=== PATIENT | female | born 1945 | race Caucasian/White ===

== ENCOUNTER 2018-12-18 17:16 | Inpatient (IN) | payer MEDICARE ==
[~2018-12-18] VITALS: Ht 170.2 cm; Wt 75.0 kg
[~2018-12-18 17:16] MED LIST: AMLO2.5T2 PO; ASPI-1265 PO; DEXL60CA3 PO; DILT-91 PO; DIVA-76 PO; FENO160T PO; GABA-534 PO; HYDR-3972 PO; HYDR50TA65 PO; LEVO500T2 PO; LISI-642 PO; METR-159 PO; ONDA4TAB12 PO; PARO40TA PO; PARO40TA4 PO; PRAV80TA3 PO; SYN0.088T PO; TRIA1TAB3 PO; ZOLP5TAB8 PO
[2018-12-18 17:50] LABS: CLARITY,URINE CLEAR (Clear); COLOR,URINE YELLOW (Yellow); GLUCOSE, URINE NEGATIVE (Neg); KETONES,URINE >=80 mg/dl (Neg); LEUKOCYTE ESTERASE ,URINE NEGATIVE (Neg); NITRITES, URINE NEGATIVE (Neg); OCCULT BLOOD,URINE NEGATIVE (Neg); PH,URINE 6.5 (4.8-8.0); PROTEIN,URINE 30 mg/dl (Neg); UROBILINOGEN,URINE 0.2 E.U/dL (0.2-1.0)
[2018-12-18 18:02] LABS: UA COLLECTION TYPE STRAIGHT CATH
[2018-12-18 18:24] LABS: ALANINE AMINOTRANSFERASE 22 U/L (12-78); ALBUMIN/GLOBULIN RATIO 0.7 (1.1-1.5); ALKALINE PHOSPHATASE 92 IU/L (46-116); ANION GAP 13 (8-16); ASPARTATE AMINO TRANSFERASE 22 U/L (10-37); BILIRUBIN,TOTAL 0.3 MG/DL (0.1-1.0); BLOOD UREA NITROGEN 15 MG/DL (7-18); CHLORIDE 102 MMOL/L (99-107); CREATININE 0.88 MG/DL (0.40-0.90); GLUCOSE 115 MG/DL (70-104); POTASSIUM 3.7 MMOL/L (3.5-5.1); SODIUM 138 MMOL/L (135-145); TOTAL CARBON DIOXIDE 22.6 MMOL/L (24-32); TOTAL PROTEIN 7.4 G/DL (6.4-8.2); eGFR 63 ML/MIN
[2018-12-18] MEDS ORDERED: normal saline 1000ml 1,000 ML IV ONE (18:30)
[2018-12-18] MEDS ORDERED: ondansetron/PF 4mg/2ml inj IV ONE (18:30)
[2018-12-18 18:50] LABS: BACTERIA,URINE NONE SEEN /HPF (Neg); MUCUS STRANDS NONE SEEN /LPF (Neg); RBC,URINE 0-2 /HPF (0-2); SQUAMOUS EPITHELIAL CELL,UR FEW /LPF (FEW); WBC,URINE 0-4 /HPF (0-4)
[2018-12-18] MEDS ORDERED: iohexol 300mg/ml 100ml inj. ONE (18:54)
[2018-12-18] MEDS: morphine 2 MG/ML inj. syringe IV PRN ×3 (19:00→22:50)
[2018-12-18 19:12] LABS: LIPASE 83 U/L (73-393); MAGNESIUM 1.5 MG/DL (1.5-2.4)
[2018-12-18] MEDS ORDERED: proCHLORperazine 10 MG/2 ml inj IV ONE (19:40)
[2018-12-18 19:46] LABS: BASOPHILS % (AUTO) 0.1 % (0-1); EOSINOPHILS % (AUTO) 0 % (0-6); HEMATOCRIT 32.8 % (35.0-45.0); HEMOGLOBIN 10.3 g/dl (12.0-16.0); LYMPHOCYTES # (AUTO) 0.7 X10'3 (1.1-4.8); LYMPHOCYTES % (AUTO) 6.2 % (21-51); MEAN CORPUSCULAR HEMOGLOBIN 26.1 PG (27.0-31.0); MEAN CORPUSCULAR HGB CONC 31.4 g/dL (33.0-36.5); MEAN PLATELET VOLUME 8.2 FL (7.4-10.4); MONOCYTES # (AUTO) 0.3 X10'3 (0-0.9); MONOCYTES % (AUTO) 2.5 % (2-12); NEUTROPHILS # (AUTO) 10.6 X10'3 (1.8-7.7); NEUTROPHILS % (AUTO) 91.2 % (42-75); PLATELET COUNT 489 X10'3 (140-440); RED BLOOD COUNT 3.95 X10'6 (4.20-5.60); RED CELL DISTRIBUTION WIDTH 15.1 % (11.5-14.5); WHITE BLOOD COUNT 11.6 X10'3 (4.5-11.0)
[2018-12-18] MEDS ORDERED: mag hydrox/Alum hydrox/simeth 30ml oral suspension PO PRN (20:15)
[2018-12-18] MEDS ORDERED: magnesium hydroxide 30ml (MOM) UD suspension PO PRN (20:15)
[2018-12-18] MEDS ORDERED: magnesium 2GM in 50ml NS 50 ML IV PRN (20:15)
[2018-12-18] MEDS ORDERED: potassium Cl 20 mEq SR tablet PO PRN (20:15)
[2018-12-18] MEDS ORDERED: potassium CL 10mEq/100ml bag 100 ML IV PRN (20:15)
[2018-12-18] MEDS ORDERED: acetaminophen 325mg tablet PO PRN ×2 (20:15)
[2018-12-18] MEDS ORDERED: magnesium 4gm in 100ml NS 100 ML IV PRN (20:15)
[2018-12-18] MEDS ORDERED: levoFLOXACIN-Levaquin 750MG/D5 150 ML IV ONE (20:50)
[2018-12-18] MEDS ORDERED: metroNIDAZOLE-Flagyl 500mg/NS 100 ML IV ONE (20:50)
--- NOTE | 2018-12-18 21:10 | NUR ---
Patient arrived to floor via gurney from the ER accompanied by her Devaughn. Patient transferred over to bed and tiffany care given as patient had had a large incontinent void.
[2018-12-18 21:30] VITALS: BP 159/54
[2018-12-18] MEDS: ondansetron/PF 4mg/2ml inj IV PRN (22:13)
[2018-12-18] MEDS: normal saline 1000ml 1,000 ML IV SCH (22:15)
[2018-12-18] MEDS ORDERED: morphine 2 MG/ML inj. syringe IV PRN (22:20)
[2018-12-18] MEDS: divalproex sodium 500mg tablet.DR PO SCH (23:25)
[2018-12-18] MEDS ORDERED: gabapentin 100mg capsule PO ONE (23:25)
--- NOTE | 2018-12-18 23:47 | NUR ---
Per pharmacist, skip the midnight dose of flagyl and then resume in the AM , and okay to give the levaquin and keep scheduled as is for tomorrow.
[2018-12-18] MEDS: LORazepam 0.5 MG tablet PO PRN (23:57)
[2018-12-19] VITALS: BP 163/60
--- NOTE | 2018-12-19 02:19 | NUR ---
Since arriving to the floor patient has started to dry heave, and lays in bed wimpering. When asked what is wrong, she states' I'm just throwing up and can't stop". Patient has had no emesis thus far, just around 20cc spit in emesis bag. However, pt c/o pain 11/28 and nausea 01/28. Patient has had 1 x dose of zofran, 1x dose of MS and an ativan pill, and has still not slept. Abdomen is soft, BS present. Called MD, new orders received for : one time dose of protonix 40mg IVP, compazine 10mg q6hr prn nausea and diet of clears, with no reds.
[2018-12-19] MEDS ORDERED: pantoprazole 40 MG vial IV ONE (02:25)
[2018-12-19] MEDS: proCHLORperazine 10 MG/2 ml inj IV PRN ×3 (02:51→16:20)
[2018-12-19] MEDS: ondansetron/PF 4mg/2ml inj IV PRN ×3 (05:13→19:29)
[2018-12-19 05:21] LABS: ALBUMIN 2.8 G/DL (3.4-5.0); ANION GAP 14 (8-16); BLOOD UREA NITROGEN 10 MG/DL (7-18); BUN/CREATININE RATIO 12.3 (6.6-38.0); CALCIUM 8.6 MG/DL (8.5-10.1); CHLORIDE 101 MMOL/L (99-107); CREATININE 0.81 MG/DL (0.40-0.90); GLUCOSE 82 MG/DL (70-104); MAGNESIUM 1.4 MG/DL (1.5-2.4); POTASSIUM 3.4 MMOL/L (3.5-5.1); SODIUM 138 MMOL/L (135-145); TOTAL CARBON DIOXIDE 22.7 MMOL/L (24-32); eGFR 70 ML/MIN
[2018-12-19 06:09] LABS: BASOPHILS % (AUTO) 0.2 % (0-1); EOSINOPHILS % (AUTO) 0 % (0-6); HEMATOCRIT 31.4 % (35.0-45.0); LYMPHOCYTES # (AUTO) 1.1 X10'3 (1.1-4.8); LYMPHOCYTES % (AUTO) 9.6 % (21-51); MEAN CORPUSCULAR HEMOGLOBIN 26.2 PG (27.0-31.0); MEAN CORPUSCULAR HGB CONC 31.7 g/dL (33.0-36.5); MEAN CORPUSCULAR VOLUME 82.7 FL (78-98); MEAN PLATELET VOLUME 8.4 FL (7.4-10.4); MONOCYTES # (AUTO) 0.9 X10'3 (0-0.9); MONOCYTES % (AUTO) 8.3 % (2-12); NEUTROPHILS # (AUTO) 9.1 X10'3 (1.8-7.7); NEUTROPHILS % (AUTO) 81.9 % (42-75); PLATELET COUNT 473 X10'3 (140-440); RED CELL DISTRIBUTION WIDTH 15.1 % (11.5-14.5); WHITE BLOOD COUNT 11.2 X10'3 (4.5-11.0)
--- NOTE | 2018-12-19 06:40 | NUR ---
Problems reprioritized. Patient report given, questions answered & plan of care reviewed with Ashley Beltran.
--- NOTE | 2018-12-19 06:58 | NUR ---
Patient in room FAN 340. I have received report from Kecia MAC and had the opportunity to ask questions and assume patient care.
[2018-12-19 07:00] VITALS: BP 153/52
[2018-12-19] MEDS: levoFLOXACIN-Levaquin 500mg/D5 100 ML IV SCH (07:53)
[2018-12-19] MEDS: K and/or MAG REPLACEMENT MC SCH (08:00)
[2018-12-19] MEDS: morphine 2 MG/ML inj. syringe IV PRN ×3 (08:53→19:32)
[2018-12-19] MEDS: lactobacillus rhamnosus 10,000 MMU CELLS/CAPSULE PO SCH ×2 (08:54→20:00)
[2018-12-19] MEDS: metroNIDAZOLE-Flagyl 500mg/NS 100 ML IV SCH ×4 (08:54→23:43)
[2018-12-19] MEDS: divalproex sodium 500mg tablet.DR PO SCH ×2 (08:54→17:15)
[2018-12-19] MEDS: enoxaparin 40mg/0.4ml syringe SQ SCH (08:56)
[2018-12-19 11:00] VITALS: BP 159/53
[2018-12-19] MEDS: normal saline 1000ml 1,000 ML IV SCH (13:55)
[2018-12-19] MEDS: potassium Cl 20 mEq SR tablet PO PRN ×2 (14:03→21:09)
--- NOTE | 2018-12-19 18:30 | NUR ---
Patient in room FAN 340. I have received report from Ashley MAC and had the opportunity to ask questions and assume patient care.
--- NOTE | 2018-12-19 18:48 | NUR ---
Problems reprioritized. Patient report given, questions answered & plan of care reviewed with Kecia MAC.
[2018-12-19 19:00] VITALS: BP 140/71
[2018-12-19] MEDS: famotidine 20mg tablet PO SCH (21:07)
[2018-12-19] MEDS: LORazepam 0.5 MG tablet PO PRN (21:11)
[2018-12-19] MEDS: temazepam 15mg capsule PO PRN (23:43)
[2018-12-20] VITALS: BP 157/71
[2018-12-20] MEDS: proCHLORperazine 10 MG/2 ml inj IV PRN ×3 (02:22→19:31)
[2018-12-20] MEDS: morphine 2 MG/ML inj. syringe IV PRN ×3 (02:25→17:51)
[2018-12-20] MEDS: potassium Cl 20 mEq SR tablet PO PRN ×2 (02:27→02:29)
--- NOTE | 2018-12-20 02:46 | NUR ---
While patient was awake, tried to go over home medications. However, patient doesn't appear to remember what she takes. Apparently, patient does have a list and so I have requested that she call her in the morning for him to bring in.
[2018-12-20 04:53] LABS: BASOPHILS % (AUTO) 0.2 % (0-1); EOSINOPHILS % (AUTO) 0 % (0-6); HEMATOCRIT 33.2 % (35.0-45.0); HEMOGLOBIN 10.6 g/dl (12.0-16.0); LYMPHOCYTES # (AUTO) 1.4 X10'3 (1.1-4.8); LYMPHOCYTES % (AUTO) 11.5 % (21-51); MEAN CORPUSCULAR HEMOGLOBIN 26.1 PG (27.0-31.0); MEAN CORPUSCULAR VOLUME 81.3 FL (78-98); MEAN PLATELET VOLUME 7.6 FL (7.4-10.4); MONOCYTES # (AUTO) 1.3 X10'3 (0-0.9); MONOCYTES % (AUTO) 10.6 % (2-12); NEUTROPHILS # (AUTO) 9.3 X10'3 (1.8-7.7); NEUTROPHILS % (AUTO) 77.7 % (42-75); PLATELET COUNT 420 X10'3 (140-440); RED BLOOD COUNT 4.08 X10'6 (4.20-5.60); RED CELL DISTRIBUTION WIDTH 15.5 % (11.5-14.5); WHITE BLOOD COUNT 11.9 X10'3 (4.5-11.0)
[2018-12-20 04:56] LABS: ALBUMIN 2.8 G/DL (3.4-5.0); ANION GAP 10 (8-16); BLOOD UREA NITROGEN 11 MG/DL (7-18); BUN/CREATININE RATIO 13.4 (6.6-38.0); CALCIUM 8.2 MG/DL (8.5-10.1); CHLORIDE 101 MMOL/L (99-107); CREATININE 0.82 MG/DL (0.40-0.90); GLUCOSE 93 MG/DL (70-104); MAGNESIUM 1.4 MG/DL (1.5-2.4); POTASSIUM 3.4 MMOL/L (3.5-5.1); SODIUM 136 MMOL/L (135-145); TOTAL CARBON DIOXIDE 25.3 MMOL/L (24-32); eGFR 69 ML/MIN
--- NOTE | 2018-12-20 06:25 | NUR ---
Patient in room FAN 340. I have received report from Kecia MAC and had the opportunity to ask questions and assume patient care.
--- NOTE | 2018-12-20 06:51 | NUR ---
Problems reprioritized. Patient report given, questions answered & plan of care reviewed with Ashley MAC.
[2018-12-20 07:00] VITALS: BP 145/60
[2018-12-20] MEDS: metroNIDAZOLE-Flagyl 500mg/NS 100 ML IV SCH ×3 (07:40→23:03)
[2018-12-20] MEDS: ondansetron/PF 4mg/2ml inj IV PRN ×2 (07:40→17:49)
[2018-12-20] MEDS: enoxaparin 40mg/0.4ml syringe SQ SCH (07:41)
[2018-12-20] MEDS: lactobacillus rhamnosus 10,000 MMU CELLS/CAPSULE PO SCH ×2 (08:00→19:31)
[2018-12-20] MEDS: famotidine 20mg tablet PO SCH ×2 (08:00→19:31)
[2018-12-20] MEDS: K and/or MAG REPLACEMENT MC SCH (08:00)
[2018-12-20] MEDS: divalproex sodium 500mg tablet.DR PO SCH ×2 (08:21→17:16)
--- NOTE | 2018-12-20 09:52 | NUR ---
I called patient's to bring the patient's current home medication list, he said he is getting ready to go the hospital to bring the list of medications
[2018-12-20] MEDS: levoFLOXACIN-Levaquin 500mg/D5 100 ML IV SCH (09:58)
[2018-12-20 11:00] VITALS: BP 165/54
[2018-12-20] MEDS ORDERED: DILT-91 PO (12:38)
[2018-12-20] MEDS ORDERED: SYN0.088T PO ×2 (12:38→14:00)
[2018-12-20] MEDS: potassium CL 10mEq/100ml bag 100 ML IV PRN (12:46)
[2018-12-20] MEDS ORDERED: POLY17PO10 PO (14:00)
[2018-12-20] MEDS ORDERED: MAGN500C16 PO (14:00)
[2018-12-20] MEDS ORDERED: DOXE10CA2 PO (14:00)
[2018-12-20] MEDS ORDERED: RIVA20TA PO (14:00)
[2018-12-20] MEDS ORDERED: VITA200C5 (14:00)
[2018-12-20] MEDS ORDERED: DICY10CA14 PO (14:00)
[2018-12-20] MEDS ORDERED: LOSA1TAB9 PO (14:00)
[2018-12-20] MEDS ORDERED: OMEP40CA13 PO (14:00)
[2018-12-20] MEDS ORDERED: OSC500T PO (14:00)
[2018-12-20] MEDS ORDERED: CHOL400T14 PO (14:00)
[2018-12-20] MEDS ORDERED: FERR325T28 PO (14:00)
--- NOTE | 2018-12-20 17:15 | NUR ---
Paged Dr. Dang regarding readiness of patient's home medications list for her review
--- NOTE | 2018-12-20 18:22 | NUR ---
Received report from ESTEFANIA Ramirez. Patient is awake and alert on room air, in no apparent distress. Call light and items of frequent use within reach. Will continue to monitor.
--- NOTE | 2018-12-20 18:29 | NUR ---
Problems reprioritized. Patient report given, questions answered & plan of care reviewed with Janeth MAC.
[2018-12-20] MEDS ORDERED: POTASSIUM BICARB 20meq eff tab 20 MEQ TABLET.EFF PO PRN (19:50)
[2018-12-20 20:00] VITALS: BP 158/79
--- NOTE | 2018-12-20 20:05 | NUR ---
Patient refused to try effer-K to replace hypokalemia. Patient verbalized that she is too nauseous and understands the importance of replacing potassium and what happens if it is not replaced. Will continue to monitor.
[2018-12-20] MEDS: temazepam 15mg capsule PO PRN (22:17)
[2018-12-20] MEDS: POTASSIUM BICARB 20meq eff tab 20 MEQ TABLET.EFF PO PRN (22:19)
[2018-12-20] MEDS: magnesium Cl slow-release 64mg tablet PO PRN (22:20)
[2018-12-21] VITALS: BP 145/59
[2018-12-21] MEDS: proCHLORperazine 10 MG/2 ml inj IV PRN ×2 (01:45→13:22)
[2018-12-21] MEDS: ondansetron/PF 4mg/2ml inj IV PRN ×3 (04:34→19:31)
[2018-12-21] MEDS: LORazepam 0.5 MG tablet PO PRN (04:34)
--- NOTE | 2018-12-21 04:43 | NUR ---
Patient verbalized that the IV site is hurting and it stings when its being flushed or when any medication is administered through. The site feels cold to touch; informed patient that it is better to insert a new IV. Patient refused to have one placed at the moment. Patient would prefer it to be done later as she is tired from having multiple episodes of vomiting and diarrhea. Will continue to monitor.
[2018-12-21 04:57] LABS: ALBUMIN 2.8 G/DL (3.4-5.0); ANION GAP 12 (8-16); BASOPHILS % (AUTO) 0.1 % (0-1); BLOOD UREA NITROGEN 14 MG/DL (7-18); BUN/CREATININE RATIO 17.3 (6.6-38.0); CALCIUM 8.5 MG/DL (8.5-10.1); CHLORIDE 101 MMOL/L (99-107); CREATININE 0.81 MG/DL (0.40-0.90); EOSINOPHILS % (AUTO) 0 % (0-6); GLUCOSE 88 MG/DL (70-104); HEMATOCRIT 34.7 % (35.0-45.0); LYMPHOCYTES # (AUTO) 1.5 X10'3 (1.1-4.8); MAGNESIUM 1.4 MG/DL (1.5-2.4); MEAN CORPUSCULAR HGB CONC 31.8 g/dL (33.0-36.5); MEAN CORPUSCULAR VOLUME 81.6 FL (78-98); MEAN PLATELET VOLUME 7.8 FL (7.4-10.4); MONOCYTES # (AUTO) 1.4 X10'3 (0-0.9); MONOCYTES % (AUTO) 11.2 % (2-12); NEUTROPHILS # (AUTO) 9.6 X10'3 (1.8-7.7); NEUTROPHILS % (AUTO) 76.7 % (42-75); PLATELET COUNT 469 X10'3 (140-440); POTASSIUM 3.1 MMOL/L (3.5-5.1); RED BLOOD COUNT 4.25 X10'6 (4.20-5.60); RED CELL DISTRIBUTION WIDTH 15.5 % (11.5-14.5); SODIUM 138 MMOL/L (135-145); TOTAL CARBON DIOXIDE 25.1 MMOL/L (24-32); WHITE BLOOD COUNT 12.5 X10'3 (4.5-11.0); eGFR 70 ML/MIN
--- NOTE | 2018-12-21 06:00 | NUR ---
Patient in room FAN 340. I have received report from Janeth MAC and had the opportunity to ask questions and assume patient care.
--- NOTE | 2018-12-21 06:10 | NUR ---
Problems reprioritized. Patient report given, questions answered & plan of care reviewed with ESTEFANIA Bullard.
[2018-12-21 07:38] VITALS: BP 165/73
[2018-12-21] MEDS: K and/or MAG REPLACEMENT MC SCH (08:00)
[2018-12-21] MEDS: metroNIDAZOLE-Flagyl 500mg/NS 100 ML IV SCH ×2 (08:16→16:59)
[2018-12-21] MEDS: enoxaparin 40mg/0.4ml syringe SQ SCH (08:18)
[2018-12-21] MEDS: lactobacillus rhamnosus 10,000 MMU CELLS/CAPSULE PO SCH ×2 (09:25→19:32)
[2018-12-21] MEDS: levoFLOXACIN-Levaquin 500mg/D5 100 ML IV SCH (09:25)
[2018-12-21] MEDS: divalproex sodium 500mg tablet.DR PO SCH ×2 (09:25→17:56)
[2018-12-21] MEDS: famotidine 20mg tablet PO SCH ×2 (09:25→19:32)
[2018-12-21] MEDS: potassium CL 10mEq/100ml bag 100 ML IV PRN ×4 (10:52→15:09)
[2018-12-21] MEDS: morphine 2 MG/ML inj. syringe IV PRN ×2 (10:55→15:05)
[2018-12-21 11:57] VITALS: BP_SYST 129; BP_SYST 140; BP_DIAS 64; BP_DIAS 81
[2018-12-21] MEDS ORDERED: piperacillin/tazo 3.375gm/50ml 50 ML IV ONE (13:15)
--- NOTE | 2018-12-21 18:26 | NUR ---
Problems reprioritized. Patient report given, questions answered & plan of care reviewed with Emily MAC.
--- NOTE | 2018-12-21 18:27 | NUR ---
Problems reprioritized. Patient report given, questions answered & plan of care reviewed with Emily MAC.
--- NOTE | 2018-12-21 18:30 | NUR ---
Patient in room FAN 340. I have received report from ESTEFANIA RUIZ and had the opportunity to ask questions and assume patient care. Addendum: 12/21/18 at 1844 by Rizwan Armstrong RN Amended: Links added.
--- NOTE | 2018-12-21 18:30 | NUR ---
pT DOES C/O SOME NAUSEA, NO EMESIS DENIES NEED FOR MEDS AT THIS TME. ENC AMB TONIGHT. DISCUSSED PLAN OF CARE FOR NIGHT. Addendum: 12/21/18 at 1844 by Rizwan Armstrong RN Amended: Links added.
[2018-12-21 19:30] VITALS: BP 124/70
[2018-12-21] MEDS: magnesium Cl slow-release 64mg tablet PO PRN (19:31)
--- NOTE | 2018-12-21 20:00 | NUR ---
c/o nausea some dry heaves. Zofran given for nausea. Addendum: 12/21/18 at 2249 by Rizwan Armstrong RN Amended: Links added.
--- NOTE | 2018-12-21 20:15 | NUR ---
Bed bath given, lotion to back, linen change. dentures in cup with road cleaner. pt declines hair washed or oral care at this time. states rinsed mouth. Addendum: 12/21/18 at 2258 by Rizwan Armstrong RN Amended: Links added.
[2018-12-21] MEDS: temazepam 15mg capsule PO PRN (21:26)
[2018-12-22] VITALS (10 sets, daily range): BP systolic 116–153; BP diastolic 57–76
[2018-12-22] MEDS: metroNIDAZOLE-Flagyl 500mg/NS 100 ML IV SCH ×2 (00:25→08:08)
[2018-12-22] MEDS: proCHLORperazine 10 MG/2 ml inj IV PRN ×2 (02:02→23:41)
[2018-12-22] MEDS: morphine 2 MG/ML inj. syringe IV PRN ×3 (02:09→20:14)
[2018-12-22] MEDS: LORazepam 0.5 MG tablet PO PRN (02:56)
[2018-12-22 04:53] LABS: BASOPHILS % (AUTO) 0.2 % (0-1); EOSINOPHILS % (AUTO) 0.3 % (0-6); HEMATOCRIT 32.3 % (35.0-45.0); HEMOGLOBIN 10.5 g/dl (12.0-16.0); LYMPHOCYTES # (AUTO) 1.2 X10'3 (1.1-4.8); LYMPHOCYTES % (AUTO) 11.4 % (21-51); MEAN CORPUSCULAR HEMOGLOBIN 26.6 PG (27.0-31.0); MEAN CORPUSCULAR HGB CONC 32.6 g/dL (33.0-36.5); MEAN CORPUSCULAR VOLUME 81.6 FL (78-98); MEAN PLATELET VOLUME 7.6 FL (7.4-10.4); MONOCYTES # (AUTO) 1.2 X10'3 (0-0.9); MONOCYTES % (AUTO) 11.5 % (2-12); NEUTROPHILS # (AUTO) 8.2 X10'3 (1.8-7.7); NEUTROPHILS % (AUTO) 76.6 % (42-75); PLATELET COUNT 414 X10'3 (140-440); RED BLOOD COUNT 3.96 X10'6 (4.20-5.60); RED CELL DISTRIBUTION WIDTH 15.1 % (11.5-14.5); WHITE BLOOD COUNT 10.8 X10'3 (4.5-11.0)
[2018-12-22 05:01] LABS: ALBUMIN 2.5 G/DL (3.4-5.0); ANION GAP 9 (8-16); BLOOD UREA NITROGEN 13 MG/DL (7-18); BUN/CREATININE RATIO 16.3 (6.6-38.0); CHLORIDE 104 MMOL/L (99-107); GLUCOSE 86 MG/DL (70-104); MAGNESIUM 1.4 MG/DL (1.5-2.4); POTASSIUM 3.1 MMOL/L (3.5-5.1); SODIUM 138 MMOL/L (135-145); TOTAL CARBON DIOXIDE 24.7 MMOL/L (24-32); eGFR 71 ML/MIN
--- NOTE | 2018-12-22 06:16 | NUR ---
Problems reprioritized. Patient report given, questions answered & plan of care reviewed with ESTEFANIA Santillan. Addendum: 12/22/18 at 0616 by Rizwan Armstrong RN Amended: Links added.
[2018-12-22] MEDS ORDERED: potassium Cl 20 mEq SR tablet PO PRN ×2 (07:55)
[2018-12-22] MEDS ORDERED: potassium CL 10mEq/100ml bag 100 ML IV PRN (07:55)
[2018-12-22] MEDS ORDERED: magnesium Cl slow-release 64mg tablet PO PRN (07:55)
[2018-12-22] MEDS ORDERED: magnesium 4gm in 100ml NS 100 ML IV PRN (07:55)
[2018-12-22] MEDS: K and/or MAG REPLACEMENT MC SCH (08:02)
[2018-12-22] MEDS: divalproex sodium 500mg tablet.DR PO SCH ×2 (08:07→17:51)
[2018-12-22] MEDS: lactobacillus rhamnosus 10,000 MMU CELLS/CAPSULE PO SCH ×2 (08:07→20:00)
[2018-12-22] MEDS: famotidine 20mg tablet PO SCH ×2 (08:07→20:00)
[2018-12-22] MEDS: levoFLOXACIN-Levaquin 500mg/D5 100 ML IV SCH (09:35)
[2018-12-22] MEDS: ondansetron/PF 4mg/2ml inj IV PRN ×2 (11:42→20:06)
[2018-12-22] MEDS ORDERED: LIDOcaine Viscous 15ml cup MM PRN (12:05)
[2018-12-22] MEDS ORDERED: mag hydrox/Alum hydrox/simeth 30ml oral suspension PO PRN (12:05)
[2018-12-22] MEDS ORDERED: dicyclomine 10 MG capsule PO PRN (12:05)
--- NOTE | 2018-12-22 14:00 | NUR ---
Checked on patient, patient is awake and talking about how happy she is that the GI cocktail worked. Patient states that her stomach feels much better. She states that she got to close her eyes and nap for a little bit.
[2018-12-22 14:37] LABS: % IRON SATURATION 10 % (11-46); IRON 21 UG/DL (49-151); TOTAL IRON BINDING CAPACITY 213 UG/DL (259-388)
[2018-12-22] MEDS ORDERED: normal saline 1000ml 1,000 ML IVB ONE ×3 (16:09→16:55)
[2018-12-22 17:26] LABS: BASOPHILS % (AUTO) 0.2 % (0-1); EOSINOPHILS % (AUTO) 0.2 % (0-6); HEMATOCRIT 30.8 % (35.0-45.0); HEMOGLOBIN 9.7 g/dl (12.0-16.0); LYMPHOCYTES # (AUTO) 1.7 X10'3 (1.1-4.8); MEAN CORPUSCULAR HEMOGLOBIN 26.1 PG (27.0-31.0); MEAN CORPUSCULAR HGB CONC 31.5 g/dL (33.0-36.5); MEAN CORPUSCULAR VOLUME 82.8 FL (78-98); MEAN PLATELET VOLUME 8.3 FL (7.4-10.4); MONOCYTES # (AUTO) 1.5 X10'3 (0-0.9); MONOCYTES % (AUTO) 8.6 % (2-12); PLATELET COUNT 498 X10'3 (140-440); RED BLOOD COUNT 3.73 X10'6 (4.20-5.60); RED CELL DISTRIBUTION WIDTH 15.7 % (11.5-14.5); WHITE BLOOD COUNT 17.2 X10'3 (4.5-11.0)
[2018-12-22 17:49] LABS: ALANINE AMINOTRANSFERASE 21 U/L (12-78); ALBUMIN 2.5 G/DL (3.4-5.0); ALBUMIN/GLOBULIN RATIO 0.7 (1.1-1.5); ALKALINE PHOSPHATASE 59 IU/L (46-116); ANION GAP 14 (8-16); ASPARTATE AMINO TRANSFERASE 18 U/L (10-37); BILIRUBIN,TOTAL 0.3 MG/DL (0.1-1.0); BLOOD UREA NITROGEN 13 MG/DL (7-18); BUN/CREATININE RATIO 13.1 (6.6-38.0); CALCIUM 7.6 MG/DL (8.5-10.1); CHLORIDE 107 MMOL/L (99-107); CREATININE 0.99 MG/DL (0.40-0.90); GLUCOSE 167 MG/DL (70-104); SODIUM 139 MMOL/L (135-145); TOTAL CARBON DIOXIDE 17.8 MMOL/L (24-32); TOTAL PROTEIN 5.9 G/DL (6.4-8.2); eGFR 55 ML/MIN
--- NOTE | 2018-12-22 17:55 | NUR ---
Patient found sitting on the floor next to her bed in front of the BSC. Patient stated that she broke out into a cold sweat and sat down before she fell. Patient was assisted up to the bed. BP was low, SBP 79. Dr. Dang called, to the unit to assess patient. Patient BP up to SBP 122. Order to give 2L Bolus and start patient on NS + 20K @150. 1L given and IV infiltrated, new IV has been attempted by 2 RNs without success. PICC line RN called to place new IV. Patient to transfer to PCU. Current BP 140/71.
[2018-12-22 17:59] LABS: POTASSIUM 2.9 MMOL/L (3.5-5.1)
--- NOTE | 2018-12-22 18:53 | NUR ---
CALLED SURGICAL FLOOR RE PAGE RECEIVED DURING PICC PLACEMENT ON OTHER FLOOR. DR. RICHARDSON ADVISED SHE WANTED A STAT PICC LINE FOR A POSSIBLE SEPSIS. REQUESTING DR RICHARDSON ALLOW AN EXTENDED PIV IN PLACE OF A PICC PICC MAY NOT BE NEEDED OR APPROPRIATE FOR PT CONDITION. PER MD ANY LINE IS FINE WITH A MIDLINE BEING PREFERABLE. EXTENDED PIV PLACED TO RIGHT BASILIC VEIN X'S 1 ATTEMPT WITHOUT DIFFICULTY. ROXI MAC NOTIFIED OF LINE STATUS, WELL NURSING SUP PER ANOTHER PAGER REQUEST. ROYCE MAC
[2018-12-22] MEDS ORDERED: iohexol 350MG/ML 100ml bottle IV ONE (18:59)
[2018-12-22] MEDS ORDERED: LIDOcaine 1% 30ml preserv. free vial ONE (21:04)
[2018-12-22] MEDS ORDERED: BUPIVAcaine/PF 2.5 mg/ml (0.25%) 30ml vial ONE (21:04)
[2018-12-22 21:29] LABS: ALANINE AMINOTRANSFERASE 19 U/L (12-78); ALBUMIN 2.2 G/DL (3.4-5.0); ALBUMIN/GLOBULIN RATIO 0.7 (1.1-1.5); ALKALINE PHOSPHATASE 53 IU/L (46-116); ANION GAP 11 (8-16); ASPARTATE AMINO TRANSFERASE 11 U/L (10-37); BILIRUBIN,TOTAL 0.3 MG/DL (0.1-1.0); BLOOD UREA NITROGEN 15 MG/DL (7-18); CALCIUM 7.4 MG/DL (8.5-10.1); CHLORIDE 106 MMOL/L (99-107); CREATININE 0.88 MG/DL (0.40-0.90); GLUCOSE 83 MG/DL (70-104); POTASSIUM 3.5 MMOL/L (3.5-5.1); SODIUM 138 MMOL/L (135-145); TOTAL CARBON DIOXIDE 21.2 MMOL/L (24-32); TOTAL PROTEIN 5.2 G/DL (6.4-8.2); eGFR 63 ML/MIN
[2018-12-22] MEDS ORDERED: fentaNYL /PF 50mcg/ml 5ml ampule ONE (21:46)
[2018-12-22] MEDS ORDERED: rocuronium 10mg/ml inj IV ONE (21:47)
[2018-12-22] MEDS ORDERED: propofol inj 20 ML IV ONE (21:49)
[2018-12-22] MEDS ORDERED: midazolam 2 mg/2 ml injection ONE (21:50)
[2018-12-22] MEDS ORDERED: ceFOXitin 2 GM ADDVANTGE BAG 50 ML IV ONE (22:15)
[2018-12-22] MEDS ORDERED: potassium Cl 40MEQ/NS 500ml 500 ML IV ONE (22:35)
[2018-12-22] MEDS ORDERED: ROPIVAcaine 0.5% (5mg/ml) 30ml vial ONE (22:42)
[2018-12-22] MEDS ORDERED: ringers solution, lacted 1,000 ML IV SCH (22:46)
[2018-12-22] MEDS ORDERED: meperidine/PF 25mg/ml syringe IV PRN ×3 (22:50)
[2018-12-22] MEDS ORDERED: proCHLORperazine 10 MG/2 ml inj IV PRN (22:50)
[2018-12-22] MEDS ORDERED: ondansetron/PF 4mg/2ml inj IV PRN ×2 (22:50→23:20)
[2018-12-22] MEDS ORDERED: morphine 4 MG/ML inj SYRINge IV PRN ×2 (22:50)
[2018-12-22] MEDS ORDERED: neostigmine methylsulfate 1 MG/ML 10ml vial ONE (23:07)
[2018-12-22] MEDS ORDERED: glycopyrrolate 0.2mg/ml inj ONE (23:07)
--- NOTE | 2018-12-22 23:18 | NUR ---
Received from OR via BED , accompanied by Anesthesiologist DR GONZALEZ and report given by Anesthesiolgist. PATIENT WAKING UP, DENIES PAIN, V/S WNL, NEUROVASCULAR CHECKS INTACT, ART LINE RUE, PICC LINE RUE, F/C DRAINING CLEAR YELLOW URINE, , SCD ON, ISLAND DRESSING TO ABDOMEN CDI.
[2018-12-22] MEDS ORDERED: naloxone 0.4 mg/ml inj IV PRN (23:20)
[2018-12-22] MEDS ORDERED: CADD PCA waste documentation MC PRN (23:20)
[2018-12-22] MEDS: Potassium Cl inj 20 MEQ in normal saline 1000ml 990 ML IV SCH (23:25)
[2018-12-23] VITALS (30 sets, daily range): BP systolic 90–151; BP diastolic 55–77
--- NOTE | 2018-12-23 | NUR ---
PATIENT SLEEPY BUT ORIENTED X4, DENIES PAIN, V/S WNL, NEUROVASCULAR CHECKS INTACT, ART LINE RUE, PICC LINE RUE, F/C DRAINING CLEAR YELLOW URINE, , SCD ON, ISLAND DRESSING TO ABDOMEN CDI. PATIENT TAKEN TO ICU WITH ALL BELONGINGS AND HOOKED UP TO MONITORS IN ROOM AND REPORT GIVEN TO RN WHO HAS TAKEN OVER PATIENT CARE.
--- NOTE | 2018-12-23 00:16 | NUR ---
pt transferred from or. pt in room 2042. pt is A&O x3 but drowsy. pt vital signs are stable. respirations are even and unlabored on 2 LPM nc. no s/s of distress noted. will continue to monitor.
[2018-12-23] MEDS: morphine 2 MG/ML inj. syringe IV PRN (00:34)
--- NOTE | 2018-12-23 00:35 | NUR ---
at bedside to visit, card with direct ICU phone number supplied to as well as visiting hour policy.
--- NOTE | 2018-12-23 01:07 | NUR ---
Called Richard Salas ELEVATED WORK PLATFORM OPERATOR regarding pt c/o pain 11/28 s/p administration of Morphine 2mg IVP, CADD orders received, standard settings.
[2018-12-23] MEDS: morphine/NS 5 mg/ml CADD 50 ML IV SCH ×10 (02:13→21:00)
[2018-12-23] MEDS: Potassium Cl inj 20 MEQ in normal saline 1000ml 990 ML IV SCH ×3 (04:30→13:22)
[2018-12-23 05:18] LABS: BASOPHILS % (AUTO) 0.1 % (0-1); EOSINOPHILS % (AUTO) 0 % (0-6); HEMATOCRIT 25.6 % (35.0-45.0); HEMOGLOBIN 8.2 g/dl (12.0-16.0); LYMPHOCYTES # (AUTO) 1.1 X10'3 (1.1-4.8); LYMPHOCYTES % (AUTO) 4.2 % (21-51); MEAN CORPUSCULAR HEMOGLOBIN 26.3 PG (27.0-31.0); MEAN CORPUSCULAR VOLUME 82.1 FL (78-98); MEAN PLATELET VOLUME 8.1 FL (7.4-10.4); MONOCYTES # (AUTO) 2.1 X10'3 (0-0.9); NEUTROPHILS # (AUTO) 23.4 X10'3 (1.8-7.7); NEUTROPHILS % (AUTO) 87.7 % (42-75); PLATELET COUNT 420 X10'3 (140-440); RED BLOOD COUNT 3.11 X10'6 (4.20-5.60); RED CELL DISTRIBUTION WIDTH 15.7 % (11.5-14.5)
[2018-12-23 05:23] LABS: ALBUMIN 2.1 G/DL (3.4-5.0); ANION GAP 12 (8-16); BLOOD UREA NITROGEN 15 MG/DL (7-18); BUN/CREATININE RATIO 21.1 (6.6-38.0); CALCIUM 7.2 MG/DL (8.5-10.1); CHLORIDE 110 MMOL/L (99-107); CREATININE 0.71 MG/DL (0.40-0.90); GLUCOSE 107 MG/DL (70-104); MAGNESIUM 1.4 MG/DL (1.5-2.4); POTASSIUM 4.2 MMOL/L (3.5-5.1); SODIUM 140 MMOL/L (135-145); TOTAL CARBON DIOXIDE 18.5 MMOL/L (24-32); eGFR 81 ML/MIN
[2018-12-23 05:41] LABS: WHITE BLOOD COUNT 26.7 X10'3 (4.5-11.0)
--- NOTE | 2018-12-23 06:33 | NUR ---
Problems reprioritized. Patient report given, questions answered & plan of care reviewed with Elias MAC.
[2018-12-23] MEDS: K and/or MAG REPLACEMENT MC SCH (07:27)
[2018-12-23] MEDS: famotidine 20mg tablet PO SCH (08:00)
[2018-12-23] MEDS: lactobacillus rhamnosus 10,000 MMU CELLS/CAPSULE PO SCH ×2 (08:00→20:57)
[2018-12-23 09:01] LABS: PLATELET ESTIMATE NORMAL; TOTAL CELLS COUNTED 100
[2018-12-23 09:03] LABS: BURR CELLS 1+; ELLIPTOCYTES FEW
[2018-12-23] MEDS: divalproex sodium 500mg tablet.DR PO SCH ×2 (09:19→17:54)
[2018-12-23] MEDS ORDERED: normal saline 1000ml 1,000 ML IV ONE (10:30)
[2018-12-23] MEDS: pantoprazole 40MG/NS 100ML BAG 100 ML IV SCH ×3 (11:07→19:24)
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
[2018-12-23 12:52] LABS: HEMATOCRIT 25.4 % (35.0-45.0); HEMOGLOBIN 8.1 g/dl (12.0-16.0); MEAN CORPUSCULAR HEMOGLOBIN 26.5 PG (27.0-31.0); MEAN CORPUSCULAR HGB CONC 31.7 g/dL (33.0-36.5); MEAN CORPUSCULAR VOLUME 83.5 FL (78-98); MEAN PLATELET VOLUME 8.1 FL (7.4-10.4); PLATELET COUNT 479 X10'3 (140-440); RED BLOOD COUNT 3.04 X10'6 (4.20-5.60); RED CELL DISTRIBUTION WIDTH 15.7 % (11.5-14.5)
[2018-12-23] MEDS ORDERED: azithromycin 250mg tablet PO ONE (13:50)
[2018-12-23] MEDS: piperacillin/tazo 4.5gm/100ml 100 ML IV SCH ×2 (15:46→21:57)
[2018-12-23] MEDS ORDERED: piperacillin/tazo 4.5gm/100ml 100 ML IV SCH (16:00)
[2018-12-23] MEDS: potassium Cl 20mEq in NS 1,000 ML IV SCH (20:58)
[2018-12-23] MEDS: diphenhydrAMINE 25mg capsule PO PRN (22:23)
--- NOTE | 2018-12-23 22:30 | NUR ---
Dr Londono at bedside earlier and placed order for clear liquids. He verbally told me if pt gets nauseous to to any PO intake to make her NPO. Pt has been itchy due to Morphine CADD, received orders for Benadryl. Gave pt small sip of water with Benadryl and she immediately became nauseous and complained of need to vomit.
[2018-12-24] VITALS (32 sets, daily range): BP systolic 95–168; BP diastolic 45–105
[2018-12-24] MEDS: pantoprazole 40MG/NS 100ML BAG 100 ML IV SCH ×2 (00:44→05:43)
[2018-12-24] MEDS: morphine/NS 5 mg/ml CADD 50 ML IV SCH ×10 (00:46→17:00)
--- NOTE | 2018-12-24 02:15 | NUR ---
Pt consistently asking for water, I have kept her NPO due to nausea.
[2018-12-24] MEDS: potassium Cl 20mEq in NS 1,000 ML IV SCH (03:02)
[2018-12-24 04:30] LABS: BASOPHILS % (AUTO) 0.1 % (0-1); EOSINOPHILS % (AUTO) 0.2 % (0-6); LYMPHOCYTES # (AUTO) 1.4 X10'3 (1.1-4.8); LYMPHOCYTES % (AUTO) 6.5 % (21-51); MEAN CORPUSCULAR HEMOGLOBIN 26.6 PG (27.0-31.0); MEAN CORPUSCULAR HGB CONC 32.1 g/dL (33.0-36.5); MEAN PLATELET VOLUME 7.5 FL (7.4-10.4); MONOCYTES # (AUTO) 2.4 X10'3 (0-0.9); MONOCYTES % (AUTO) 11.2 % (2-12); NEUTROPHILS # (AUTO) 17.3 X10'3 (1.8-7.7); PLATELET COUNT 341 X10'3 (140-440); RED BLOOD COUNT 2.55 X10'6 (4.20-5.60); RED CELL DISTRIBUTION WIDTH 16.2 % (11.5-14.5); WHITE BLOOD COUNT 21.1 X10'3 (4.5-11.0)
[2018-12-24 04:43] LABS: ALANINE AMINOTRANSFERASE 14 U/L (12-78); ALBUMIN 1.9 G/DL (3.4-5.0); ALBUMIN/GLOBULIN RATIO 0.6 (1.1-1.5); ALKALINE PHOSPHATASE 46 IU/L (46-116); ANION GAP 9 (8-16); ASPARTATE AMINO TRANSFERASE 15 U/L (10-37); BILIRUBIN,TOTAL 0.2 MG/DL (0.1-1.0); BLOOD UREA NITROGEN 13 MG/DL (7-18); BUN/CREATININE RATIO 15.1 (6.6-38.0); CALCIUM 7.5 MG/DL (8.5-10.1); CHLORIDE 114 MMOL/L (99-107); CREATININE 0.86 MG/DL (0.40-0.90); GLUCOSE 93 MG/DL (70-104); MAGNESIUM 2.4 MG/DL (1.5-2.4); PHOSPHORUS 2.4 MG/DL (2.3-4.5); POTASSIUM 4.5 MMOL/L (3.5-5.1); SODIUM 142 MMOL/L (135-145); eGFR 65 ML/MIN
[2018-12-24 04:47] LABS: HEMATOCRIT 21.2 % (35.0-45.0); HEMOGLOBIN 6.8 g/dl (12.0-16.0)
--- NOTE | 2018-12-24 04:52 | NUR ---
Critical valve H/H 6.12/[address] Londono; no new orders.
--- NOTE | 2018-12-24 06:59 | NUR ---
Patient in room ICU 2042. I have received report from Jie MAC and had the opportunity to ask questions and assume patient care.
[2018-12-24] MEDS: K and/or MAG REPLACEMENT MC SCH (08:00)
[2018-12-24 08:12] LABS: ANISOCYTOSIS 1+; PLATELET ESTIMATE NORMAL; TOTAL CELLS COUNTED 100
[2018-12-24 09:03] LABS: MEAN CORPUSCULAR HEMOGLOBIN 26.5 PG (27.0-31.0); MEAN CORPUSCULAR HGB CONC 31.9 g/dL (33.0-36.5); MEAN PLATELET VOLUME 7.4 FL (7.4-10.4); PLATELET COUNT 339 X10'3 (140-440); RED BLOOD COUNT 2.36 X10'6 (4.20-5.60); RED CELL DISTRIBUTION WIDTH 15.7 % (11.5-14.5)
[2018-12-24] MEDS: piperacillin/tazo 4.5gm/100ml 100 ML IV SCH ×3 (09:03→15:54)
[2018-12-24] MEDS: losartan 50mg tablet PO SCH (09:04)
--- NOTE | 2018-12-24 09:05 | NUR ---
Critical Hgb 6.2, per Dr. Lloyd, admin 2 units PRBC then recheck. Blood ordered and ready from day of surgery.
[2018-12-24 09:06] LABS: HEMATOCRIT 19.6 % (35.0-45.0); HEMOGLOBIN 6.2 g/dl (12.0-16.0)
[2018-12-24] MEDS: divalproex sodium 500mg tablet.DR PO SCH ×2 (09:27→17:23)
[2018-12-24] MEDS: levoTHYROXINE 75mcg tablet PO SCH (09:36)
[2018-12-24] MEDS: lactobacillus rhamnosus 10,000 MMU CELLS/CAPSULE PO SCH ×2 (09:37→19:07)
[2018-12-24] MEDS: HYDROchlorothiazide 25mg tablet PO SCH (09:37)
[2018-12-24] MEDS: normal saline 1000ml 1,000 ML IV SCH ×2 (09:42→16:18)
--- NOTE | 2018-12-24 10:30 | NUR ---
Dr. Lloyd notified the med rec needs to be done
[2018-12-24] MEDS ORDERED: mening vac A,C,Y,W-135 dip/PF 4 mcg/0.5 ml vaccine IMVAC ONE (11:35)
[2018-12-24] MEDS ORDERED: pneumococcal 23-VAL P-sac vacc 25 mcg/0.5ml vial IMVAC ONE (11:35)
[2018-12-24] MEDS ORDERED: haemoph B poly conj-tet tox/PF 10mcg/0.5ml vial IMVAC ONE (11:35)
[2018-12-24] MEDS: diphenhydrAMINE 25mg capsule PO PRN (12:07)
--- NOTE | 2018-12-24 14:00 | NUR ---
Dr Londono at bedside, dressing off, open to air. Ambulate as tolerated. Full liquid diet. MD aware of nausea this AM; will advance as tolerated.
[2018-12-24] MEDS ORDERED: diphenhydrAMINE 50 mg/ml inj IV PRN (14:45)
[2018-12-24 17:11] LABS: HEMOGLOBIN 8.6 g/dl (12.0-16.0); MEAN CORPUSCULAR HEMOGLOBIN 28.1 PG (27.0-31.0); MEAN CORPUSCULAR HGB CONC 32.9 g/dL (33.0-36.5); MEAN CORPUSCULAR VOLUME 85.3 FL (78-98); MEAN PLATELET VOLUME 7.3 FL (7.4-10.4); PLATELET COUNT 293 X10'3 (140-440); RED BLOOD COUNT 3.05 X10'6 (4.20-5.60); RED CELL DISTRIBUTION WIDTH 16.9 % (11.5-14.5); WHITE BLOOD COUNT 18.1 X10'3 (4.5-11.0)
--- NOTE | 2018-12-24 18:44 | NUR ---
Problems reprioritized. Patient report given, questions answered & plan of care reviewed with Altagracia MAC.
--- NOTE | 2018-12-24 18:45 | NUR ---
Patient continues to itch after Benadryl yet continues to be in pain; Dr. Lloyd called and will try patient on [place] instead of Morphine CADD pump.
[2018-12-24] MEDS: pantoprazole 40 MG vial IV SCH (19:07)
[2018-12-24] MEDS: LORazepam 0.5 MG tablet PO PRN (19:07)
[2018-12-24] MEDS: HYDROcodone/acetaminophen 10/325mg tab PO PRN (19:07)
[2018-12-24] MEDS: diltiazem CD 120mg capsule (once-daily) PO SCH (21:13)
[2018-12-24] MEDS: doxepin 10mg capsule PO SCH (21:13)
[2018-12-24] MEDS: ondansetron/PF 4mg/2ml inj IV PRN (21:42)
[2018-12-25] VITALS (16 sets, daily range): BP systolic 86–161; BP diastolic 53–78
[2018-12-25] MEDS: piperacillin/tazo 4.5gm/100ml 100 ML IV SCH ×2 (00:23→07:38)
--- NOTE | 2018-12-25 01:11 | NUR ---
183..Patient in room ICU 2042. I have received report from day RN and had the opportunity to ask questions and assume patient care.
--- NOTE | 2018-12-25 01:12 | NUR ---
1899..medicated with norco 10/325 1 tab, for complaints of incisional pain, morphine cadd discontinued. Ativan 0.5 mg given po for anxiety.
--- NOTE | 2018-12-25 01:13 | NUR ---
2000..Elmore and ativan effective, states feeling much better, assessment as noted.
--- NOTE | 2018-12-25 01:14 | NUR ---
0000..Continues to rest quietly, no changes noted.
[2018-12-25] MEDS: HYDROcodone/acetaminophen 10/325mg tab PO PRN ×4 (02:28→18:22)
[2018-12-25] MEDS: ondansetron/PF 4mg/2ml inj IV PRN ×2 (03:17→14:51)
--- NOTE | 2018-12-25 04:27 | NUR ---
0400..No changes noted.
[2018-12-25 04:47] LABS: BASOPHILS # (AUTO) 0.1 X10'3 (0-0.2); BASOPHILS % (AUTO) 0.4 % (0-1); EOSINOPHILS # (AUTO) 0.7 X10'3 (0-0.9); EOSINOPHILS % (AUTO) 3.7 % (0-6); HEMATOCRIT 26.7 % (35.0-45.0); HEMOGLOBIN 8.8 g/dl (12.0-16.0); LYMPHOCYTES # (AUTO) 1.2 X10'3 (1.1-4.8); MEAN CORPUSCULAR HGB CONC 32.9 g/dL (33.0-36.5); MEAN CORPUSCULAR VOLUME 85.3 FL (78-98); MEAN PLATELET VOLUME 8.3 FL (7.4-10.4); MONOCYTES # (AUTO) 1.8 X10'3 (0-0.9); MONOCYTES % (AUTO) 10.3 % (2-12); NEUTROPHILS # (AUTO) 13.8 X10'3 (1.8-7.7); NEUTROPHILS % (AUTO) 78.6 % (42-75); PLATELET COUNT 302 X10'3 (140-440); RED BLOOD COUNT 3.13 X10'6 (4.20-5.60); RED CELL DISTRIBUTION WIDTH 16.8 % (11.5-14.5); WHITE BLOOD COUNT 17.6 X10'3 (4.5-11.0)
[2018-12-25 05:02] LABS: ALANINE AMINOTRANSFERASE 16 U/L (12-78); ALBUMIN 1.9 G/DL (3.4-5.0); ALBUMIN/GLOBULIN RATIO 0.6 (1.1-1.5); ALKALINE PHOSPHATASE 52 IU/L (46-116); ANION GAP 11 (8-16); ASPARTATE AMINO TRANSFERASE 20 U/L (10-37); BILIRUBIN,TOTAL 0.5 MG/DL (0.1-1.0); BLOOD UREA NITROGEN 8 MG/DL (7-18); BUN/CREATININE RATIO 12.3 (6.6-38.0); CHLORIDE 109 MMOL/L (99-107); CREATININE 0.65 MG/DL (0.40-0.90); GLUCOSE 53 MG/DL (70-104); MAGNESIUM 1.7 MG/DL (1.5-2.4); POTASSIUM 3.6 MMOL/L (3.5-5.1); SODIUM 140 MMOL/L (135-145); TOTAL CARBON DIOXIDE 19.7 MMOL/L (24-32); TOTAL PROTEIN 5.3 G/DL (6.4-8.2); eGFR 90 ML/MIN
--- NOTE | 2018-12-25 06:25 | NUR ---
0625..Problems reprioritized. Patient report given, questions answered & plan of care reviewed with Jane MAC.
--- NOTE | 2018-12-25 06:30 | NUR ---
Patient in room ICU 2042. I have received report from frida and had the opportunity to ask questions and assume patient care.
[2018-12-25] MEDS: K and/or MAG REPLACEMENT MC SCH (07:18)
[2018-12-25] MEDS: pantoprazole 40 MG vial IV SCH (07:38)
[2018-12-25] MEDS: losartan 50mg tablet PO SCH (07:39)
[2018-12-25] MEDS: lactobacillus rhamnosus 10,000 MMU CELLS/CAPSULE PO SCH ×2 (07:40→21:05)
[2018-12-25] MEDS: HYDROchlorothiazide 25mg tablet PO SCH (07:40)
[2018-12-25] MEDS: levoTHYROXINE 75mcg tablet PO SCH (07:40)
[2018-12-25] MEDS: divalproex sodium 500mg tablet.DR PO SCH ×2 (07:48→16:38)
[2018-12-25] MEDS: normal saline 1000ml 1,000 ML IV SCH (07:49)
--- NOTE | 2018-12-25 09:02 | NUR ---
pt awake and alert- crying out earlier with c/o chronic lower back pain -s/p fall 1 year ago after tripping over vacuum cord. norco 10 given with relief. also repositioned to side.
--- NOTE | 2018-12-25 10:45 | NUR ---
Patient in room ICU 2042. I have received report from ESTEFANIA Varghese and had the opportunity to ask questions and assume patient care.
[2018-12-25] MEDS: lactose-reduced food (Ensure Enlive) - 237ml bottle PO SCH ×2 (12:50→17:47)
--- NOTE | 2018-12-25 14:08 | NUR ---
Transferred to [facility]. Stable for transfer per pizza delivery.
[2018-12-25] MEDS ORDERED: ondansetron 4mg rapidly disintigrating tab PO PRN (14:20)
--- NOTE | 2018-12-25 14:22 | NUR ---
Patient arrived to the floor. vital signs stable. complaints of mild nausea.
[2018-12-25] MEDS: pantoprazole 40mg Tablet.DR PO SCH (16:38)
[2018-12-25] MEDS ORDERED: magnesium hydroxide 30ml (MOM) UD suspension PO ONE (16:45)
--- NOTE | 2018-12-25 18:22 | NUR ---
Problems reprioritized. Patient report given, questions answered & plan of care reviewed with ESTEFANIA Gillette.
--- NOTE | 2018-12-25 18:30 | NUR ---
Patient in room FAN 345. I have received report from Lala MAC and had the opportunity to ask questions and assume patient care. Patient stating pain, Lala provided pain medications. Will continue to monitor.
[2018-12-25 19:46] LABS: BASOPHILS # (AUTO) 0.1 X10'3 (0-0.2); BASOPHILS % (AUTO) 0.5 % (0-1); EOSINOPHILS # (AUTO) 0.8 X10'3 (0-0.9); EOSINOPHILS % (AUTO) 5.9 % (0-6); HEMATOCRIT 26.8 % (35.0-45.0); LYMPHOCYTES # (AUTO) 1.3 X10'3 (1.1-4.8); LYMPHOCYTES % (AUTO) 9.3 % (21-51); MEAN CORPUSCULAR HGB CONC 33.6 g/dL (33.0-36.5); MEAN CORPUSCULAR VOLUME 83.4 FL (78-98); MEAN PLATELET VOLUME 7.3 FL (7.4-10.4); MONOCYTES # (AUTO) 1.3 X10'3 (0-0.9); MONOCYTES % (AUTO) 9.2 % (2-12); NEUTROPHILS # (AUTO) 10.8 X10'3 (1.8-7.7); NEUTROPHILS % (AUTO) 75.1 % (42-75); PLATELET COUNT 340 X10'3 (140-440); RED BLOOD COUNT 3.21 X10'6 (4.20-5.60); RED CELL DISTRIBUTION WIDTH 16.9 % (11.5-14.5); WHITE BLOOD COUNT 14.3 X10'3 (4.5-11.0)
--- NOTE | 2018-12-25 20:00 | NUR ---
Patient stating that she is having severe pain in right lower quadrant which is more firm than the rest of the stomach. Left message for Dr. Londono. Called April Graciela CHIEF ESTIMATOR, received order for CBC and type and screen. April CHIEF ESTIMATOR came to see patient and states that she will follow up when results from CBC back. Dr. Londono called to notify that it is likely due to expected inflammation and she can walk to assist with any gas pains. Notified April of improving H/H and WBC and returned call from Dr. Londono. Will continue to monitor.
--- NOTE | 2018-12-25 21:00 | NUR ---
Discussed with patient Dr. Londono's recommendation to walk and the benefits to the abd pain. Patient states no I won't walk tonight I'm too tired. I will walk in morning. Will continue to monitor.
[2018-12-25] MEDS: doxepin 10mg capsule PO SCH (21:05)
[2018-12-25] MEDS: gabapentin 400mg capsule PO SCH (21:05)
[2018-12-25] MEDS: HYDROcodone/acetaminophen 10/325mg tab PO SCH (21:06)
[2018-12-25] MEDS: diltiazem CD 120mg capsule (once-daily) PO SCH (21:06)
[2018-12-26] VITALS: BP 126/62
[2018-12-26] MEDS: HYDROcodone/acetaminophen 10/325mg tab PO SCH ×2 (02:00→08:17)
[2018-12-26] MEDS: HYDROcodone/acetaminophen 10/325mg tab PO PRN ×4 (05:27→20:57)
--- NOTE | 2018-12-26 06:31 | NUR ---
Problems reprioritized. Patient report given, questions answered & plan of care reviewed with Lala RN. Patient resting eyes closed respirations even.
[2018-12-26 07:20] VITALS: BP 136/59
[2018-12-26] MEDS: K and/or MAG REPLACEMENT MC SCH (08:00)
[2018-12-26] MEDS ORDERED: potassium Cl 10 mEq/100mL bag IV ONE ×4 (08:00→13:40)
[2018-12-26] MEDS: lactobacillus rhamnosus 10,000 MMU CELLS/CAPSULE PO SCH ×2 (08:02→20:09)
[2018-12-26] MEDS: HYDROchlorothiazide 25mg tablet PO SCH (08:03)
[2018-12-26] MEDS: pantoprazole 40mg Tablet.DR PO SCH ×2 (08:03→16:47)
[2018-12-26] MEDS: levoTHYROXINE 75mcg tablet PO SCH (08:03)
[2018-12-26] MEDS: losartan 50mg tablet PO SCH (08:03)
[2018-12-26] MEDS: ferrous sulfate 325mg tablet PO SCH (08:03)
[2018-12-26] MEDS: dicyclomine 10 MG capsule PO SCH (08:04)
[2018-12-26] MEDS: divalproex sodium 500mg tablet.DR PO SCH ×2 (08:04→16:47)
[2018-12-26] MEDS: rivaroxaban 20mg tablet PO SCH (08:04)
[2018-12-26] MEDS: polyethylene glycol 3350 17gm powd pack PO SCH (08:06)
[2018-12-26] MEDS: calcium carbonate 500mg tablet PO SCH (08:18)
[2018-12-26] MEDS: lactose-reduced food (Ensure Enlive) - 237ml bottle PO SCH ×3 (08:20→17:43)
[2018-12-26 11:00] VITALS: BP 151/61
--- NOTE | 2018-12-26 11:47 | NUR ---
Spoke with brown sourer service regarding K= 3.0, was ordered to give 4 doses of potassium cl 10mEq/100ml bag via IV.
--- NOTE | 2018-12-26 14:09 | NUR ---
Reassessment: Patient's diet has been advanced to full liquids with poor PO intake averaging 0-25% not meeting nutrient needs. Pt with Ensure Enlive ordered TID documented with 100% PO intake at lunch. Per MD notes pt with minimal flatus and abdomen softly distended. Per GI trends pt c/o abdominal pain likely interfering with appetite/PO intake. LBM 9/6 with normal bowel sounds per physical assessment. Hgb stable per MD notes. Will continue to follow. Rec: 1. advance diet per MD to regular 2. Ensure Enlive TID 3. Encourage PO intake 4. bowel care as needed 5. wt per rx Addendum: 12/26/18 at [address] Amended: Links added.
[2018-12-26] MEDS: morphine 2 MG/ML inj. syringe IV PRN ×2 (17:56→23:05)
[2018-12-26 18:10] VITALS: BP 160/74
[2018-12-26] MEDS ORDERED: potassium CL 10mEq/100ml bag 100 ML IV PRN (18:15)
[2018-12-26] MEDS ORDERED: magnesium 4gm in 100ml NS 100 ML IV PRN (18:15)
[2018-12-26] MEDS ORDERED: potassium Cl 20 mEq SR tablet PO PRN ×2 (18:15)
--- NOTE | 2018-12-26 18:30 | NUR ---
Patient in room FAN 345. I have received report from ESTEFANIA Reeves and had the opportunity to ask questions and assume patient care.
--- NOTE | 2018-12-26 18:30 | NUR ---
Problems reprioritized. Patient report given, questions answered & plan of care reviewed with ESTEFANIA Gil and ESTEFANIA Underwood.
[2018-12-26 19:49] LABS: MAGNESIUM 1.4 MG/DL (1.5-2.4); POTASSIUM 3.1 MMOL/L (3.5-5.1)
[2018-12-26] MEDS: diltiazem CD 120mg capsule (once-daily) PO SCH (20:10)
[2018-12-26] MEDS: doxepin 10mg capsule PO SCH (20:12)
[2018-12-26] MEDS: temazepam 15mg capsule PO PRN (20:12)
[2018-12-26] MEDS: gabapentin 400mg capsule PO SCH (20:12)
[2018-12-26] MEDS: POTASSIUM BICARB 20meq eff tab 20 MEQ TABLET.EFF PO PRN (22:39)
[2018-12-26] MEDS: ondansetron/PF 4mg/2ml inj IV PRN (22:48)
[2018-12-27 00:10] VITALS: BP 142/65
[2018-12-27] MEDS: POTASSIUM BICARB 20meq eff tab 20 MEQ TABLET.EFF PO PRN (02:48)
[2018-12-27] MEDS: HYDROcodone/acetaminophen 10/325mg tab PO PRN ×2 (02:59→06:49)
[2018-12-27] MEDS: morphine 2 MG/ML inj. syringe IV PRN ×2 (04:55→12:08)
[2018-12-27 05:21] LABS: ALBUMIN 1.9 G/DL (3.4-5.0); ANION GAP 5 (8-16); BLOOD UREA NITROGEN 8 MG/DL (7-18); BUN/CREATININE RATIO 12.9 (6.6-38.0); CALCIUM 8.5 MG/DL (8.5-10.1); CHLORIDE 105 MMOL/L (99-107); CREATININE 0.62 MG/DL (0.40-0.90); GLUCOSE 89 MG/DL (70-104); MAGNESIUM 1.4 MG/DL (1.5-2.4); POTASSIUM 3.4 MMOL/L (3.5-5.1); SODIUM 139 MMOL/L (135-145); TOTAL CARBON DIOXIDE 28.7 MMOL/L (24-32); eGFR > 90 ML/MIN
--- NOTE | 2018-12-27 06:28 | NUR ---
Problems reprioritized. Patient report given, questions answered & plan of care reviewed with ESTEFANIA Garcia.
[2018-12-27] MEDS: LORazepam 0.5 MG tablet PO PRN (06:45)
[2018-12-27] MEDS: pantoprazole 40mg Tablet.DR PO SCH (06:45)
[2018-12-27] MEDS: levoTHYROXINE 75mcg tablet PO SCH (06:46)
[2018-12-27 07:00] VITALS: BP 160/70
--- NOTE | 2018-12-27 07:26 | NUR ---
Patient in room FAN 345. I have received report from Jeffery MAC and had the opportunity to ask questions and assume patient care.
[2018-12-27] MEDS: magnesium Cl slow-release 64mg tablet PO PRN ×2 (07:52→14:26)
[2018-12-27] MEDS: K and/or MAG REPLACEMENT MC SCH (08:00)
[2018-12-27] MEDS: ferrous sulfate 325mg tablet PO SCH (08:24)
[2018-12-27] MEDS: lactobacillus rhamnosus 10,000 MMU CELLS/CAPSULE PO SCH (08:24)
[2018-12-27] MEDS: rivaroxaban 20mg tablet PO SCH (08:25)
[2018-12-27] MEDS: dicyclomine 10 MG capsule PO SCH (08:25)
[2018-12-27] MEDS: HYDROchlorothiazide 25mg tablet PO SCH (08:25)
[2018-12-27] MEDS: calcium carbonate 500mg tablet PO SCH (08:25)
[2018-12-27] MEDS: losartan 50mg tablet PO SCH (08:25)
[2018-12-27] MEDS: divalproex sodium 500mg tablet.DR PO SCH (08:25)
[2018-12-27] MEDS: polyethylene glycol 3350 17gm powd pack PO SCH (08:26)
[2018-12-27] MEDS: lactose-reduced food (Ensure Enlive) - 237ml bottle PO SCH ×2 (08:31→13:07)
[2018-12-27 11:00] VITALS: BP 146/70
[2018-12-27] MEDS ORDERED: POTA-82 PO (12:35)
--- NOTE | 2018-12-27 14:51 | NUR ---
patient required pain relief x2 for abdominal pain 10/28. Effective. Seen by Milena Alatorre is for DC. All DC instructions given to patient and . Meds called through to james on [facility]. Patient appears stable for DC. Dc home via private car with to home 1445hrs.
== END 2018-12-27 14:51 | disposition home or self-care (01) | DRG 356 ==
LOC: ER 17:17 → SUR 3N 21:17 → CMPBEDREQ 12-21 19:56 → ICU 2S 12-22 23:13 → SUR 3N 12-25 14:15
PROVIDERS: ADMIT Hospitalist; ATTEND Internal Medicine Critical Care Medicine
PROC: BW211ZZ Computerized Tomography (CT Scan) of Abdomen and Pelvis using Low Osmolar Contrast (ICD-10-PCS; 2018-12-18)
PROC: 04L20ZZ Occlusion of Gastric Artery, Open Approach (ICD-10-PCS; 2018-12-22)
PROC: 3E0T3BZ Introduction of Anesthetic Agent into Peripheral Nerves and Plexi, Percutaneous Approach (ICD-10-PCS; 2018-12-22)
PROC: B4201ZZ Computerized Tomography (CT Scan) of Abdominal Aorta using Low Osmolar Contrast (ICD-10-PCS; 2018-12-22)
PROC: B4241ZZ Computerized Tomography (CT Scan) of Superior Mesenteric Artery using Low Osmolar Contrast (ICD-10-PCS; 2018-12-22)
PROC: B4281ZZ Computerized Tomography (CT Scan) of Bilateral Renal Arteries using Low Osmolar Contrast (ICD-10-PCS; 2018-12-22)
PROC: B4211ZZ Computerized Tomography (CT Scan) of Celiac Artery using Low Osmolar Contrast (ICD-10-PCS; 2018-12-22)
PROC: 0WCG0ZZ Extirpation of Matter from Peritoneal Cavity, Open Approach (ICD-10-PCS; principal; 2018-12-22 21:38)
PROC: 3E0234Z Introduction of Serum, Toxoid and Vaccine into Muscle, Percutaneous Approach (ICD-10-PCS; 2018-12-24)
PROC: 30233N1 Transfusion of Nonautologous Red Blood Cells into Peripheral Vein, Percutaneous Approach (ICD-10-PCS; 2018-12-24)
DX: K66.1 Hemoperitoneum (principal); S35.298A Other injury of branches of celiac and mesenteric artery, initial encounter; K56.7 Ileus, unspecified; A09 Infectious gastroenteritis and colitis, unspecified; E87.6 Hypokalemia; D64.9 Anemia, unspecified; E03.9 Hypothyroidism, unspecified; E78.00 Pure hypercholesterolemia, unspecified; E78.5 Hyperlipidemia, unspecified; F31.9 Bipolar disorder, unspecified; X58.XXXA Exposure to other specified factors, initial encounter; F41.9 Anxiety disorder, unspecified; G40.909 Epilepsy, unspecified, not intractable, without status epilepticus; I10 Essential (primary) hypertension; I48.0 Paroxysmal atrial fibrillation; K21.9 Gastro-esophageal reflux disease without esophagitis; R00.0 Tachycardia, unspecified; R58 Hemorrhage, not elsewhere classified; Z90.710 Acquired absence of both cervix and uterus; Z23 Encounter for immunization; Z88.2 Allergy status to sulfonamides; Z79.899 Other long term (current) drug therapy; Z79.82 Long term (current) use of aspirin; Y93.89 Activity, other specified; Y99.8 Other external cause status; Y92.89 Other specified places as the place of occurrence of the external cause
CPT/HCPCS: 36415; 74174; 74177; 76937; 80048; 80053; 81001; 82948; 83540; 83550; 83605; 83690; 83735; 84100; 84132; 84145; 84443; 84484; 85025; 85027; 85610; 86885; 86900; 86901; 86920; 87040; 87081; 89055; 93005; 93306; 96361; 96374; 96375; 96376; 99285; A4215; A4618; A6258; A6449; A7000; C1758; C9113; G0378; J0694; J0780; J1200; J1644; J1650; J1956; J2001; J2175; J2250; J2270; J2405; J2543; J2704; J2710; J2795; J3010; J3475; J3480; J3490; J7030; J7040; J7120; P9016; Q0163; Q9967

== ENCOUNTER 2019-01-04 14:35 | Emergency (ER) | payer MEDICARE ==
[~2019-01-04] VITALS: Ht 170.2 cm; Wt 72.7 kg
[~2019-01-04 14:35] MED LIST changes: -AMLO2.5T2 PO; -ASPI-1265 PO; +CHOL400T14 PO; -DEXL60CA3 PO; +DICY10CA14 PO; -DIVA-76 PO; +DOXE10CA2 PO; -FENO160T PO; +FERR325T28 PO; -HYDR50TA65 PO; -LEVO500T2 PO; -LISI-642 PO; +LOSA1TAB9 PO; +MAGN500C16 PO; -METR-159 PO; +OMEP40CA13 PO; +OSC500T PO; -PARO40TA PO; -PARO40TA4 PO; +POLY17PO10 PO; +POTA-82 PO; +RIVA20TA PO; -TRIA1TAB3 PO; +VITA200C5; -ZOLP5TAB8 PO
[2019-01-04 15:20] LABS: BASOPHILS # (AUTO) 0.2 X10'3 (0-0.2); BASOPHILS % (AUTO) 1.4 % (0-1); EOSINOPHILS # (AUTO) 0.4 X10'3 (0-0.9); EOSINOPHILS % (AUTO) 2.8 % (0-6); HEMATOCRIT 36.9 % (35.0-45.0); HEMOGLOBIN 11.7 g/dl (12.0-16.0); LYMPHOCYTES # (AUTO) 2.7 X10'3 (1.1-4.8); LYMPHOCYTES % (AUTO) 19.9 % (21-51); MEAN CORPUSCULAR HEMOGLOBIN 27.4 PG (27.0-31.0); MEAN CORPUSCULAR HGB CONC 31.7 g/dL (33.0-36.5); MEAN CORPUSCULAR VOLUME 86.4 FL (78-98); MEAN PLATELET VOLUME 7.9 FL (7.4-10.4); MONOCYTES # (AUTO) 1.6 X10'3 (0-0.9); MONOCYTES % (AUTO) 11.6 % (2-12); NEUTROPHILS # (AUTO) 8.6 X10'3 (1.8-7.7); NEUTROPHILS % (AUTO) 64.3 % (42-75); PLATELET COUNT 794 X10'3 (140-440); RED BLOOD COUNT 4.27 X10'6 (4.20-5.60); RED CELL DISTRIBUTION WIDTH 19.1 % (11.5-14.5); WHITE BLOOD COUNT 13.4 X10'3 (4.5-11.0)
[2019-01-04 15:28] LABS: PARTIAL THROMBOPLASTIN TIME 34 SECONDS (22-32)
[2019-01-04] MEDS ORDERED: LORazepam 2 mg/ml vial IV ONE (15:30)
[2019-01-04 15:45] LABS: ALANINE AMINOTRANSFERASE 34 U/L (12-78); ALBUMIN 3.4 G/DL (3.4-5.0); ALBUMIN/GLOBULIN RATIO 0.7 (1.1-1.5); ALKALINE PHOSPHATASE 88 IU/L (46-116); ANION GAP 15 (8-16); ASPARTATE AMINO TRANSFERASE 32 U/L (10-37); BILIRUBIN,TOTAL 0.4 MG/DL (0.1-1.0); BLOOD UREA NITROGEN 27 MG/DL (7-18); BUN/CREATININE RATIO 23.9 (6.6-38.0); CALCIUM 9.9 MG/DL (8.5-10.1); CHLORIDE 104 MMOL/L (99-107); CREATININE 1.13 MG/DL (0.40-0.90); GLUCOSE 91 MG/DL (70-104); MAGNESIUM 1.8 MG/DL (1.5-2.4); POTASSIUM 4.2 MMOL/L (3.5-5.1); SODIUM 142 MMOL/L (135-145); TOTAL CARBON DIOXIDE 22.7 MMOL/L (24-32); TOTAL PROTEIN 8.4 G/DL (6.4-8.2); eGFR 47 ML/MIN
[2019-01-04] MEDS ORDERED: normal saline 1000ML IV soln IVB ONE (15:50)
[2019-01-04 16:56] LABS: PLATELET ESTIMATE INCREASED
[2019-01-04 16:57] LABS: ANISOCYTOSIS 2+; LARGE PLATELETS FEW; POLYCHROMASIA FEW
[2019-01-04 16:59] LABS: SPHEROCYTES 1+
[2019-01-04] MEDS ORDERED: DILT240T12 PO (17:02)
[2019-01-04] MEDS ORDERED: ATOR-2 PO (17:04)
[2019-01-04] MEDS ORDERED: FISH12002 PO (17:11)
[2019-01-04] MEDS ORDERED: MULT-933 PO (17:11)
[2019-01-04 17:13] LABS: CLARITY,URINE SLIGHTLY CLOUDY (Clear); COLOR,URINE YELLOW (Yellow); GLUCOSE, URINE NEGATIVE (Neg); KETONES,URINE NEGATIVE (Neg); LEUKOCYTE ESTERASE ,URINE NEGATIVE (Neg); NITRITES, URINE NEGATIVE (Neg); OCCULT BLOOD,URINE NEGATIVE (Neg); PH,URINE 8.5 (4.8-8.0); PROTEIN,URINE TRACE mg/dl (Neg); UA COLLECTION TYPE CLN CATCH MIDSTREAM
[2019-01-04] MEDS ORDERED: ASCO500W7 PO (17:13)
[2019-01-04] MEDS ORDERED: CYAN-51 PO (17:13)
[2019-01-04] MEDS ORDERED: LEVO75TA7 PO (17:20)
[2019-01-04] MEDS ORDERED: POTA-82 PO (17:20)
[2019-01-04 17:21] LABS: WBC,URINE 0-4 /HPF (0-4)
[2019-01-04 17:22] LABS: AMORPHOUS PHOSPHATES 1+; BACTERIA,URINE FEW /HPF (Neg); HYALINE CASTS 0-3 /LPF (NEGATIVE); MUCUS STRANDS FEW /LPF (Neg); RBC,URINE 0-2 /HPF (0-2); SQUAMOUS EPITHELIAL CELL,UR MODERATE /LPF (FEW)
[2019-01-04] MEDS ORDERED: VITA400C65 PO (17:24)
[2019-01-04 17:49] VITALS: BP 141/67
== END 2019-01-04 17:52 | disposition home or self-care (01) ==
LOC: ER 14:36
DX: T81.89XA Other complications of procedures, not elsewhere classified, initial encounter (principal); G89.18 Other acute postprocedural pain; F41.9 Anxiety disorder, unspecified; R06.02 Shortness of breath; E78.00 Pure hypercholesterolemia, unspecified; I10 Essential (primary) hypertension; Z90.710 Acquired absence of both cervix and uterus; Z98.890 Other specified postprocedural states; Z88.2 Allergy status to sulfonamides; Z88.5 Allergy status to narcotic agent; Z79.899 Other long term (current) drug therapy; Y83.8 Other surgical procedures as the cause of abnormal reaction of the patient, or of later complication, without mention of misadventure at the time of the procedure; Y92.89 Other specified places as the place of occurrence of the external cause
CPT/HCPCS: 36415; 71045; 80053; 81001; 83605; 83735; 84145; 84484; 85025; 85610; 85730; 87040; 93005; 96374; 99284; J2060; J7030

== ENCOUNTER 2019-01-07 10:20 | Inpatient (IN) | payer MEDICARE ==
[~2019-01-07] VITALS: Ht 170.2 cm; Wt 64.5 kg
[~2019-01-07 10:20] MED LIST changes: +ASCO500W7 PO; +ATOR-2 PO; +CYAN-51 PO; -DILT-91 PO; +DILT240T12 PO; +FISH12002 PO; +LEVO75TA7 PO; +MULT-933 PO; -POLY17PO10 PO; -PRAV80TA3 PO; -SYN0.088T PO; -VITA200C5; +VITA400C65 PO
[2019-01-07] MEDS ORDERED: normal saline 1000ML IV soln IVB ONE (10:45)
[2019-01-07 11:06] LABS: BASOPHILS # (AUTO) 0.1 X10'3 (0-0.2); BASOPHILS % (AUTO) 0.4 % (0-1); EOSINOPHILS # (AUTO) 0.1 X10'3 (0-0.9); EOSINOPHILS % (AUTO) 0.4 % (0-6); HEMATOCRIT 31.7 % (35.0-45.0); HEMOGLOBIN 10.3 g/dl (12.0-16.0); LYMPHOCYTES # (AUTO) 2.5 X10'3 (1.1-4.8); LYMPHOCYTES % (AUTO) 16.3 % (21-51); MEAN CORPUSCULAR HEMOGLOBIN 27.9 PG (27.0-31.0); MEAN CORPUSCULAR HGB CONC 32.4 g/dL (33.0-36.5); MEAN CORPUSCULAR VOLUME 86.1 FL (78-98); MEAN PLATELET VOLUME 7.7 FL (7.4-10.4); MONOCYTES # (AUTO) 1.4 X10'3 (0-0.9); MONOCYTES % (AUTO) 9.4 % (2-12); NEUTROPHILS # (AUTO) 11.3 X10'3 (1.8-7.7); NEUTROPHILS % (AUTO) 73.5 % (42-75); PLATELET COUNT 529 X10'3 (140-440); RED BLOOD COUNT 3.68 X10'6 (4.20-5.60); RED CELL DISTRIBUTION WIDTH 19.9 % (11.5-14.5); WHITE BLOOD COUNT 15.4 X10'3 (4.5-11.0)
[2019-01-07 11:20] LABS: PARTIAL THROMBOPLASTIN TIME 34 SECONDS (22-32)
[2019-01-07 11:29] LABS: PLATELET ESTIMATE INCREASED
[2019-01-07 11:31] LABS: POLYCHROMASIA 2+
[2019-01-07 11:32] LABS: ANISOCYTOSIS 2+; ELLIPTOCYTES FEW; SCHISTOCYTES FEW; TEAR DROP CELLS FEW
[2019-01-07 11:37] LABS: ALANINE AMINOTRANSFERASE 28 U/L (12-78); ALBUMIN 3.5 G/DL (3.4-5.0); ALBUMIN/GLOBULIN RATIO 0.8 (1.1-1.5); ALKALINE PHOSPHATASE 80 IU/L (46-116); ANION GAP 16 (8-16); ASPARTATE AMINO TRANSFERASE 26 U/L (10-37); BILIRUBIN,TOTAL 0.4 MG/DL (0.1-1.0); BLOOD UREA NITROGEN 29 MG/DL (7-18); BUN/CREATININE RATIO 18.4 (6.6-38.0); CALCIUM 9.4 MG/DL (8.5-10.1); CHLORIDE 105 MMOL/L (99-107); CREATININE 1.58 MG/DL (0.40-0.90); ETHANOL < 0.010 GM/DL (0.0-0.010); GLUCOSE 99 MG/DL (70-104); POTASSIUM 3.9 MMOL/L (3.5-5.1); SODIUM 141 MMOL/L (135-145); TOTAL CARBON DIOXIDE 19.8 MMOL/L (24-32); TOTAL PROTEIN 7.8 G/DL (6.4-8.2); TROPONIN I < 0.04 NG/ML (0.0-0.05); eGFR 32 ML/MIN
--- NOTE | 2019-01-07 11:40 | NUR ---
vickey called to come in, dr. fiore would like to talk with him
[2019-01-07] MEDS ORDERED: CefTRIAXone 2gm/D5W 50ml 50 ML IV ONE (11:55)
[2019-01-07] MEDS ORDERED: piperacillin/tazo 3.375gm/50ml 50 ML IV ONE (12:20)
[2019-01-07 12:51] LABS: CLARITY,URINE SLIGHTLY CLOUDY (Clear); COLOR,URINE YELLOW (Yellow); GLUCOSE, URINE NEGATIVE (Neg); KETONES,URINE NEGATIVE (Neg); LEUKOCYTE ESTERASE ,URINE NEGATIVE (Neg); NITRITES, URINE NEGATIVE (Neg); OCCULT BLOOD,URINE NEGATIVE (Neg); PROTEIN,URINE NEGATIVE (Neg); UA COLLECTION TYPE STRAIGHT CATH; UROBILINOGEN,URINE 0.2 E.U/dL (0.2-1.0)
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
[2019-01-07 12:59] LABS: MUCUS STRANDS FEW /LPF (Neg); SQUAMOUS EPITHELIAL CELL,UR FEW /LPF (FEW)
--- NOTE | 2019-01-07 12:59 | NUR ---
to ct scan via wheelchair with inspector publications
[2019-01-07 13:03] LABS: BACTERIA,URINE FEW /HPF (Neg); CAL OXALATE CRYSTALS 1+ /HPF (NEGATIVE); RBC,URINE 0-2 /HPF (0-2); WBC,URINE 0-4 /HPF (0-4)
[2019-01-07 13:13] LABS: URINE AMPHETAMINE SCREEN NEGATIVE (Neg); URINE BARBITUATE SCREEN NEGATIVE (Neg); URINE BENZODIAZEPINES SCREEN NEGATIVE (Neg); URINE CANNABINOID SCREEN POSITIVE (Neg); URINE COCAINE SCREEN NEGATIVE (Neg); URINE METHADONE SCREEN NEGATIVE (Neg); URINE OPIATE SCREEN POSITIVE (Neg); URINE PHENCYCLIDINE SCREEN NEGATIVE (Neg)
--- NOTE | 2019-01-07 13:13 | NUR ---
back from ct scan in stable condition
--- NOTE | 2019-01-07 14:31 | NUR ---
pt continues to be confused getting out of bed x3. no fall. redirected back to bed, cooperative. eationg lunch at this time
--- NOTE | 2019-01-07 14:32 | NUR ---
pt sitting up in bed with legs between rails, informed karen moreno nurse, pt needs sitter.
--- NOTE | 2019-01-07 14:35 | NUR ---
dr. allison at bedside.
--- NOTE | 2019-01-07 14:35 | NUR ---
[facility] pt is answering questions about how she is doing by giving months and then giggling and saying its backwards, in and out of oriented sounding/appearing conversation with provider
[2019-01-07] MEDS: normal saline 1000ml 1,000 ML IV SCH (14:46)
[2019-01-07] MEDS ORDERED: magnesium 2GM in 50ml NS 50 ML IV PRN (14:50)
[2019-01-07] MEDS ORDERED: potassium Cl 20 mEq SR tablet PO PRN ×2 (14:50)
[2019-01-07] MEDS ORDERED: potassium CL 10mEq/100ml bag 100 ML IV PRN ×2 (14:50)
[2019-01-07] MEDS ORDERED: acetaminophen 325mg tablet PO PRN ×2 (14:50)
[2019-01-07] MEDS ORDERED: ondansetron/PF 4mg/2ml inj IV PRN (14:50)
[2019-01-07] MEDS ORDERED: magnesium 4gm in 100ml NS 100 ML IV PRN (14:50)
[2019-01-07] MEDS ORDERED: magnesium Cl slow-release 64mg tablet PO PRN (14:50)
[2019-01-07] MEDS ORDERED: piperacillin/tazo 3.375gm/50ml 50 ML IV SCH (16:00)
[2019-01-07] MEDS: morphine 2 MG/ML inj. syringe IV PRN (16:12)
--- NOTE | 2019-01-07 16:20 | NUR ---
pt c/o abd pain on scale 10/10. morphine 0.5mg iv given.
[2019-01-07] MEDS: LORazepam 2 mg/ml vial IV PRN (17:33)
--- NOTE | 2019-01-07 18:04 | NUR ---
GAVE REPORT TO LUZ ELENA MAC
--- NOTE | 2019-01-07 18:30 | NUR ---
Patient in room FAN 358. I have received report from Deana MAC and had the opportunity to ask questions and assume patient care.
[2019-01-07] MEDS ORDERED: ondansetron 4mg rapidly disintigrating tab PO PRN (18:50)
[2019-01-07 19:00] VITALS: BP 128/70
[2019-01-07] MEDS: doxepin 10mg capsule PO SCH (20:24)
[2019-01-07] MEDS: docusate sod 100mg capsule PO SCH (20:24)
[2019-01-07] MEDS: gabapentin 400mg capsule PO SCH (20:24)
[2019-01-07] MEDS: heparin, porcine 5000 units/ml vial SQ SCH (20:25)
[2019-01-07] MEDS: temazepam 15mg capsule PO PRN (20:28)
[2019-01-07] MEDS: piperacillin/tazo 3.375gm/50ml 50 ML IV SCH (21:32)
[2019-01-08] VITALS: BP 109/59
[2019-01-08] MEDS: normal saline 1000ml 1,000 ML IV SCH ×3 (00:46→13:01)
[2019-01-08] MEDS: piperacillin/tazo 3.375gm/50ml 50 ML IV SCH ×3 (05:03→20:22)
--- NOTE | 2019-01-08 06:20 | NUR ---
Problems reprioritized. Patient report given, questions answered & plan of care reviewed with Ryanne and Aleah RNs.
[2019-01-08 07:00] VITALS: BP 130/62
--- NOTE | 2019-01-08 07:08 | NUR ---
Patient in room FAN 358. I have received report from ESTEFANIA Griffin and had the opportunity to ask questions and assume patient care.
[2019-01-08 07:28] LABS: BASOPHILS # (AUTO) 0.1 X10'3 (0-0.2); BASOPHILS % (AUTO) 0.8 % (0-1); EOSINOPHILS # (AUTO) 0.2 X10'3 (0-0.9); EOSINOPHILS % (AUTO) 1.4 % (0-6); HEMATOCRIT 29.4 % (35.0-45.0); HEMOGLOBIN 9.6 g/dl (12.0-16.0); LYMPHOCYTES # (AUTO) 1.1 X10'3 (1.1-4.8); LYMPHOCYTES % (AUTO) 10.5 % (21-51); MEAN CORPUSCULAR HEMOGLOBIN 28.2 PG (27.0-31.0); MEAN CORPUSCULAR HGB CONC 32.7 g/dL (33.0-36.5); MEAN CORPUSCULAR VOLUME 86.4 FL (78-98); MEAN PLATELET VOLUME 8.3 FL (7.4-10.4); MONOCYTES # (AUTO) 0.9 X10'3 (0-0.9); NEUTROPHILS # (AUTO) 8.7 X10'3 (1.8-7.7); NEUTROPHILS % (AUTO) 79.3 % (42-75); PLATELET COUNT 425 X10'3 (140-440); RED BLOOD COUNT 3.41 X10'6 (4.20-5.60); WHITE BLOOD COUNT 10.9 X10'3 (4.5-11.0)
[2019-01-08 07:49] LABS: ALBUMIN 2.9 G/DL (3.4-5.0); ANION GAP 15 (8-16); BLOOD UREA NITROGEN 23 MG/DL (7-18); BUN/CREATININE RATIO 21.9 (6.6-38.0); CALCIUM 8.6 MG/DL (8.5-10.1); CHLORIDE 106 MMOL/L (99-107); CREATININE 1.05 MG/DL (0.40-0.90); GLUCOSE 87 MG/DL (70-104); MAGNESIUM 1.6 MG/DL (1.5-2.4); POTASSIUM 3.5 MMOL/L (3.5-5.1); SODIUM 141 MMOL/L (135-145); TOTAL CARBON DIOXIDE 20.5 MMOL/L (24-32); eGFR 52 ML/MIN
[2019-01-08] MEDS: K and/or MAG REPLACEMENT MC SCH (08:00)
[2019-01-08] MEDS: heparin, porcine 5000 units/ml vial SQ SCH ×2 (09:22→19:32)
[2019-01-08] MEDS: losartan 50mg tablet PO SCH (09:23)
[2019-01-08] MEDS: magnesium oxide 400mg tablet PO SCH (09:23)
[2019-01-08] MEDS: HYDROchlorothiazide 12.5mg capsule PO SCH (09:23)
[2019-01-08] MEDS: levoTHYROXINE 75mcg tablet PO SCH (09:23)
[2019-01-08] MEDS: docusate sod 100mg capsule PO SCH ×2 (09:24→19:32)
[2019-01-08] MEDS: pantoprazole 40mg Tablet.DR PO SCH (09:24)
[2019-01-08] MEDS: potassium Cl 20 mEq SR tablet PO SCH (09:24)
[2019-01-08] MEDS: rivaroxaban 20mg tablet PO SCH (09:24)
[2019-01-08] MEDS: diltiazem CD 120mg capsule (once-daily) PO SCH (09:25)
[2019-01-08 09:45] LABS: ANISOCYTOSIS 2+; MICROCYTOSIS 1+; PLATELET ESTIMATE NORMAL; POIKILOCYTOSIS FEW
[2019-01-08 11:00] VITALS: BP 125/63
[2019-01-08] MEDS ORDERED: DIVA-76 PO (15:06)
[2019-01-08] MEDS ORDERED: QUET25TA PO (15:06)
[2019-01-08 18:00] VITALS: BP 157/73
--- NOTE | 2019-01-08 18:30 | NUR ---
Problems reprioritized. Patient report given, questions answered & plan of care reviewed with ESTEFANIA Griffin.
[2019-01-08] MEDS: lactobacillus rhamnosus 10,000 MMU CELLS/CAPSULE PO SCH (19:32)
[2019-01-08] MEDS: LORazepam 2 mg/ml vial IV PRN (19:32)
[2019-01-08] MEDS: doxepin 10mg capsule PO SCH (20:23)
[2019-01-08] MEDS: gabapentin 400mg capsule PO SCH (20:23)
[2019-01-08] MEDS: quetiapine 100mg tablet PO SCH (20:23)
[2019-01-08] MEDS: HYDROcodone/acetaminophen 5mg/325mg tablet PO PRN (20:30)
[2019-01-08] MEDS: morphine 2 MG/ML inj. syringe IV PRN (22:04)
[2019-01-09 02:00] VITALS: BP 116/60
[2019-01-09] MEDS: normal saline 1000ml 1,000 ML IV SCH (02:30)
[2019-01-09] MEDS: piperacillin/tazo 3.375gm/50ml 50 ML IV SCH (04:56)
[2019-01-09] MEDS: LORazepam 2 mg/ml vial IV PRN (05:02)
--- NOTE | 2019-01-09 06:29 | NUR ---
Patient in room FAN 358. I have received report from Josselyn MAC and had the opportunity to ask questions and assume patient care.
--- NOTE | 2019-01-09 06:30 | NUR ---
Patient in room FAN 358. I have received report from ESTEFANIA Griffin and had the opportunity to ask questions and assume patient care.
--- NOTE | 2019-01-09 06:32 | NUR ---
Problems reprioritized. Patient report given, questions answered & plan of care reviewed with Eliza RN.
[2019-01-09 06:38] LABS: BASOPHILS # (AUTO) 0.1 X10'3 (0-0.2); BASOPHILS % (AUTO) 1.4 % (0-1); EOSINOPHILS # (AUTO) 0.2 X10'3 (0-0.9); EOSINOPHILS % (AUTO) 3.9 % (0-6); HEMATOCRIT 28.8 % (35.0-45.0); HEMOGLOBIN 9.3 g/dl (12.0-16.0); LYMPHOCYTES % (AUTO) 31.3 % (21-51); MEAN CORPUSCULAR HEMOGLOBIN 28.4 PG (27.0-31.0); MEAN CORPUSCULAR HGB CONC 32.4 g/dL (33.0-36.5); MEAN CORPUSCULAR VOLUME 87.5 FL (78-98); MEAN PLATELET VOLUME 8.6 FL (7.4-10.4); MONOCYTES # (AUTO) 0.7 X10'3 (0-0.9); MONOCYTES % (AUTO) 10.3 % (2-12); NEUTROPHILS # (AUTO) 3.4 X10'3 (1.8-7.7); NEUTROPHILS % (AUTO) 53.1 % (42-75); PLATELET COUNT 368 X10'3 (140-440); RED CELL DISTRIBUTION WIDTH 19.9 % (11.5-14.5); WHITE BLOOD COUNT 6.3 X10'3 (4.5-11.0)
[2019-01-09 06:42] LABS: ALBUMIN 2.9 G/DL (3.4-5.0); ANION GAP 13 (8-16); BLOOD UREA NITROGEN 15 MG/DL (7-18); BUN/CREATININE RATIO 17.2 (6.6-38.0); CALCIUM 8.4 MG/DL (8.5-10.1); CHLORIDE 109 MMOL/L (99-107); CREATININE 0.87 MG/DL (0.40-0.90); GLUCOSE 95 MG/DL (70-104); MAGNESIUM 1.5 MG/DL (1.5-2.4); POTASSIUM 3.3 MMOL/L (3.5-5.1); SODIUM 143 MMOL/L (135-145); TOTAL CARBON DIOXIDE 20.9 MMOL/L (24-32); eGFR 64 ML/MIN
[2019-01-09 08:00] VITALS: BP 140/95
[2019-01-09] MEDS: K and/or MAG REPLACEMENT MC SCH (08:00)
[2019-01-09] MEDS: heparin, porcine 5000 units/ml vial SQ SCH ×2 (08:00→20:37)
[2019-01-09 08:04] LABS: ANISOCYTOSIS 2+; PLATELET ESTIMATE NORMAL; POIKILOCYTOSIS FEW; POLYCHROMASIA 1+; TARGET CELLS FEW
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
--- NOTE | 2019-01-09 09:00 | NUR ---
Spoke to Dr. Castellon regarding patient's K of 3.3-has K DUR scheduled. Per Dr. Castellon will not replace with additional potassium.
[2019-01-09] MEDS: HYDROchlorothiazide 12.5mg capsule PO SCH (09:16)
[2019-01-09] MEDS: pantoprazole 40mg Tablet.DR PO SCH (09:16)
[2019-01-09] MEDS: lactobacillus rhamnosus 10,000 MMU CELLS/CAPSULE PO SCH ×2 (09:16→20:37)
[2019-01-09] MEDS: levoTHYROXINE 75mcg tablet PO SCH (09:16)
[2019-01-09] MEDS: docusate sod 100mg capsule PO SCH ×2 (09:16→20:37)
[2019-01-09] MEDS: losartan 50mg tablet PO SCH (09:16)
[2019-01-09] MEDS: rivaroxaban 20mg tablet PO SCH (09:17)
[2019-01-09] MEDS: magnesium oxide 400mg tablet PO SCH (09:17)
[2019-01-09] MEDS: divalproex sodium 500mg tablet.DR PO SCH (09:17)
[2019-01-09] MEDS: potassium Cl 20 mEq SR tablet PO SCH (09:17)
[2019-01-09] MEDS: diltiazem CD 120mg capsule (once-daily) PO SCH (09:17)
[2019-01-09 12:06] VITALS: BP 130/87
[2019-01-09 18:30] VITALS: BP 158/76
--- NOTE | 2019-01-09 18:30 | NUR ---
Patient in room FAN 358. I have received report from Eliza MAC and had the opportunity to ask questions and assume patient care.
--- NOTE | 2019-01-09 18:36 | NUR ---
Problems reprioritized. Patient report given, questions answered & plan of care reviewed with ESTEFANIA Griffin.
[2019-01-09] MEDS: HYDROcodone/acetaminophen 5mg/325mg tablet PO PRN (20:36)
[2019-01-09] MEDS: quetiapine 100mg tablet PO SCH (20:37)
[2019-01-09] MEDS: temazepam 15mg capsule PO PRN (20:37)
[2019-01-09] MEDS: gabapentin 400mg capsule PO SCH (20:37)
[2019-01-09] MEDS: doxepin 10mg capsule PO SCH (20:37)
[2019-01-10] VITALS: BP 117/60
--- NOTE | 2019-01-10 01:56 | NUR ---
Skin Check: Various scabs/"bug bites" throughout upper thighs and back. pt reports they are itchy and sometimes bleed when scratched. Resource RN checked skins with this RN, and forgot to sign
[2019-01-10] MEDS: LORazepam 2 mg/ml vial IV PRN ×3 (02:10→20:27)
[2019-01-10] MEDS: normal saline 1000ml 1,000 ML IV SCH ×2 (03:33→16:14)
[2019-01-10 06:21] LABS: BASOPHILS # (AUTO) 0.1 X10'3 (0-0.2); BASOPHILS % (AUTO) 1.3 % (0-1); EOSINOPHILS # (AUTO) 0.5 X10'3 (0-0.9); EOSINOPHILS % (AUTO) 7.8 % (0-6); HEMATOCRIT 27.6 % (35.0-45.0); HEMOGLOBIN 9.2 g/dl (12.0-16.0); LYMPHOCYTES # (AUTO) 2.2 X10'3 (1.1-4.8); LYMPHOCYTES % (AUTO) 33.4 % (21-51); MEAN CORPUSCULAR HEMOGLOBIN 28.8 PG (27.0-31.0); MEAN CORPUSCULAR HGB CONC 33.3 g/dL (33.0-36.5); MEAN CORPUSCULAR VOLUME 86.5 FL (78-98); MEAN PLATELET VOLUME 8.6 FL (7.4-10.4); MONOCYTES # (AUTO) 0.7 X10'3 (0-0.9); MONOCYTES % (AUTO) 10.5 % (2-12); NEUTROPHILS # (AUTO) 3.2 X10'3 (1.8-7.7); PLATELET COUNT 341 X10'3 (140-440); RED BLOOD COUNT 3.19 X10'6 (4.20-5.60); RED CELL DISTRIBUTION WIDTH 19.9 % (11.5-14.5); WHITE BLOOD COUNT 6.7 X10'3 (4.5-11.0)
--- NOTE | 2019-01-10 06:30 | NUR ---
Problems reprioritized. Patient report given, questions answered & plan of care reviewed with Radha RN.
[2019-01-10 06:35] LABS: ALBUMIN 2.7 G/DL (3.4-5.0); ANION GAP 9 (8-16); BLOOD UREA NITROGEN 8 MG/DL (7-18); BUN/CREATININE RATIO 10.4 (6.6-38.0); CALCIUM 8.7 MG/DL (8.5-10.1); CHLORIDE 112 MMOL/L (99-107); CREATININE 0.77 MG/DL (0.40-0.90); GLUCOSE 101 MG/DL (70-104); MAGNESIUM 1.6 MG/DL (1.5-2.4); POTASSIUM 3.7 MMOL/L (3.5-5.1); SODIUM 145 MMOL/L (135-145); TOTAL CARBON DIOXIDE 23.7 MMOL/L (24-32); eGFR 74 ML/MIN
--- NOTE | 2019-01-10 06:46 | NUR ---
Patient in room FAN 358. I have received report from Elias MAC and had the opportunity to ask questions and assume patient care.
[2019-01-10 07:00] VITALS: BP 132/62
[2019-01-10] MEDS: K and/or MAG REPLACEMENT MC SCH (08:00)
--- NOTE | 2019-01-10 08:39 | NUR ---
Reported by PCT that patient getting up frequently to void but "not having very much" output 100ml at a time. Patient c/o abd pain and bladder discomfort. Mild distention to bladder upon palpation. Bladder scan shows 167ML. Will continue to monitor.
[2019-01-10] MEDS: levoTHYROXINE 75mcg tablet PO SCH (09:54)
[2019-01-10] MEDS: HYDROchlorothiazide 12.5mg capsule PO SCH (09:54)
[2019-01-10] MEDS: potassium Cl 20 mEq SR tablet PO SCH (09:54)
[2019-01-10] MEDS: rivaroxaban 20mg tablet PO SCH (09:54)
[2019-01-10] MEDS: docusate sod 100mg capsule PO SCH ×2 (09:54→20:22)
[2019-01-10] MEDS: pantoprazole 40mg Tablet.DR PO SCH (09:54)
[2019-01-10] MEDS: diltiazem CD 120mg capsule (once-daily) PO SCH (09:55)
[2019-01-10] MEDS: divalproex sodium 500mg tablet.DR PO SCH (09:55)
[2019-01-10] MEDS: magnesium oxide 400mg tablet PO SCH (09:55)
[2019-01-10] MEDS: losartan 50mg tablet PO SCH (09:56)
[2019-01-10] MEDS: heparin, porcine 5000 units/ml vial SQ SCH ×2 (09:56→20:22)
[2019-01-10] MEDS: lactobacillus rhamnosus 10,000 MMU CELLS/CAPSULE PO SCH ×2 (09:56→20:22)
[2019-01-10 11:00] VITALS: BP 131/87
[2019-01-10 11:24] LABS: CLARITY,URINE CLEAR (Clear); COLOR,URINE YELLOW (Yellow); GLUCOSE, URINE NEGATIVE (Neg); KETONES,URINE NEGATIVE (Neg); LEUKOCYTE ESTERASE ,URINE NEGATIVE (Neg); NITRITES, URINE NEGATIVE (Neg); OCCULT BLOOD,URINE NEGATIVE (Neg); PROTEIN,URINE NEGATIVE (Neg); UROBILINOGEN,URINE 0.2 E.U/dL (0.2-1.0)
[2019-01-10 11:28] LABS: UA COLLECTION TYPE CLN CATCH MIDSTREAM
[2019-01-10] MEDS: HYDROcodone/acetaminophen 5mg/325mg tablet PO PRN (15:11)
--- NOTE | 2019-01-10 16:56 | NUR ---
patient has been voiding with no complaints other than frequency. patient post void bladder scan shows 100ml.
--- NOTE | 2019-01-10 18:32 | NUR ---
Problems reprioritized. Patient report given, questions answered & plan of care reviewed with Leigh AMC.
[2019-01-10 19:00] VITALS: BP 142/50
[2019-01-10] MEDS: risperiDONE 0.5mg tablet PO SCH (20:22)
[2019-01-10] MEDS: temazepam 15mg capsule PO PRN (20:22)
[2019-01-10] MEDS: gabapentin 400mg capsule PO SCH (20:22)
[2019-01-10] MEDS: morphine 2 MG/ML inj. syringe IV PRN (20:28)
--- NOTE | 2019-01-10 23:38 | NUR ---
Patient in room FAN 358. I have received report from ESTEFANIA Trujillo and had the opportunity to ask questions and assume patient care. Addendum: 01/10/19 at 2340 by Leigh Moy RN Amended: Links added.
[2019-01-11 00:28] VITALS: BP 127/60
[2019-01-11] MEDS: normal saline 1000ml 1,000 ML IV SCH (02:28)
[2019-01-11] MEDS: HYDROcodone/acetaminophen 5mg/325mg tablet PO PRN ×2 (04:51→20:46)
[2019-01-11] MEDS: LORazepam 2 mg/ml vial IV PRN (05:31)
[2019-01-11 06:03] LABS: BASOPHILS # (AUTO) 0.1 X10'3 (0-0.2); BASOPHILS % (AUTO) 1.2 % (0-1); EOSINOPHILS # (AUTO) 0.5 X10'3 (0-0.9); EOSINOPHILS % (AUTO) 6.6 % (0-6); HEMATOCRIT 29.3 % (35.0-45.0); HEMOGLOBIN 9.6 g/dl (12.0-16.0); LYMPHOCYTES # (AUTO) 2.6 X10'3 (1.1-4.8); LYMPHOCYTES % (AUTO) 34.3 % (21-51); MEAN CORPUSCULAR HEMOGLOBIN 28.5 PG (27.0-31.0); MEAN CORPUSCULAR HGB CONC 32.8 g/dL (33.0-36.5); MEAN CORPUSCULAR VOLUME 86.9 FL (78-98); MEAN PLATELET VOLUME 8.3 FL (7.4-10.4); MONOCYTES # (AUTO) 0.7 X10'3 (0-0.9); MONOCYTES % (AUTO) 8.8 % (2-12); NEUTROPHILS # (AUTO) 3.7 X10'3 (1.8-7.7); NEUTROPHILS % (AUTO) 49.1 % (42-75); PLATELET COUNT 372 X10'3 (140-440); RED BLOOD COUNT 3.37 X10'6 (4.20-5.60); RED CELL DISTRIBUTION WIDTH 19.6 % (11.5-14.5); WHITE BLOOD COUNT 7.6 X10'3 (4.5-11.0)
[2019-01-11 06:12] LABS: ALBUMIN 2.9 G/DL (3.4-5.0); ANION GAP 14 (8-16); BLOOD UREA NITROGEN 6 MG/DL (7-18); BUN/CREATININE RATIO 8.3 (6.6-38.0); CALCIUM 8.8 MG/DL (8.5-10.1); CHLORIDE 107 MMOL/L (99-107); CREATININE 0.72 MG/DL (0.40-0.90); GLUCOSE 82 MG/DL (70-104); MAGNESIUM 1.3 MG/DL (1.5-2.4); SODIUM 141 MMOL/L (135-145); TOTAL CARBON DIOXIDE 20.2 MMOL/L (24-32); eGFR 80 ML/MIN
[2019-01-11 06:15] LABS: POTASSIUM 4.1 MMOL/L (3.5-5.1)
--- NOTE | 2019-01-11 06:33 | NUR ---
Problems reprioritized. Patient report given, questions answered & plan of care reviewed with ESTEFANIA Castellano. Addendum: 01/11/19 at 0633 by Leigh Moy RN Amended: Links added.
[2019-01-11 07:07] LABS: ANISOCYTOSIS 2+; LARGE PLATELETS FEW; PLATELET ESTIMATE NORMAL
[2019-01-11 07:08] LABS: POLYCHROMASIA FEW
[2019-01-11 07:40] VITALS: BP 136/72
[2019-01-11] MEDS: losartan 50mg tablet PO SCH (07:42)
[2019-01-11] MEDS: pantoprazole 40mg Tablet.DR PO SCH (07:42)
[2019-01-11] MEDS: HYDROchlorothiazide 12.5mg capsule PO SCH (07:42)
[2019-01-11] MEDS: diltiazem CD 120mg capsule (once-daily) PO SCH (07:42)
[2019-01-11] MEDS: potassium Cl 20 mEq SR tablet PO SCH (07:42)
[2019-01-11] MEDS: magnesium oxide 400mg tablet PO SCH (07:43)
[2019-01-11] MEDS: divalproex sodium 500mg tablet.DR PO SCH (07:43)
[2019-01-11] MEDS: docusate sod 100mg capsule PO SCH ×2 (07:43→20:00)
[2019-01-11] MEDS: lactobacillus rhamnosus 10,000 MMU CELLS/CAPSULE PO SCH ×2 (07:43→20:46)
[2019-01-11] MEDS: levoTHYROXINE 75mcg tablet PO SCH (07:43)
[2019-01-11] MEDS: rivaroxaban 20mg tablet PO SCH (07:43)
[2019-01-11] MEDS: K and/or MAG REPLACEMENT MC SCH (07:44)
[2019-01-11] MEDS: heparin, porcine 5000 units/ml vial SQ SCH (07:45)
[2019-01-11] MEDS ORDERED: potassium CL 10mEq/100ml bag 100 ML IV PRN (10:20)
[2019-01-11] MEDS ORDERED: potassium Cl 20 mEq SR tablet PO PRN ×2 (10:20)
--- NOTE | 2019-01-11 10:40 | NUR ---
Patient up ambulating the hallway x1. Tolerated well. No outbursts to report. Patient is happy and pleasant, stable.
[2019-01-11] MEDS: magnesium Cl slow-release 64mg tablet PO PRN ×2 (10:47→20:46)
[2019-01-11 11:00] VITALS: BP 169/76
[2019-01-11] MEDS: morphine 2 MG/ML inj. syringe IV PRN (13:44)
[2019-01-11] MEDS: LORazepam 0.5 MG tablet PO PRN (13:44)
[2019-01-11 18:00] VITALS: BP 139/64
--- NOTE | 2019-01-11 18:15 | NUR ---
Received report from ESTEFANIA Santillan. Patient is awake and alert on room air, in no apparent distress. Call light and items of frequent use within reach. Will continue to monitor.
[2019-01-11] MEDS: risperiDONE 0.5mg tablet PO SCH (20:47)
[2019-01-11] MEDS: gabapentin 400mg capsule PO SCH (20:47)
[2019-01-12] VITALS: BP 151/67
[2019-01-12] MEDS: LORazepam 0.5 MG tablet PO PRN (03:32)
[2019-01-12 06:21] LABS: BASOPHILS # (AUTO) 0.1 X10'3 (0-0.2); BASOPHILS % (AUTO) 1.1 % (0-1); EOSINOPHILS # (AUTO) 0.4 X10'3 (0-0.9); HEMATOCRIT 26.8 % (35.0-45.0); HEMOGLOBIN 8.8 g/dl (12.0-16.0); LYMPHOCYTES # (AUTO) 1.6 X10'3 (1.1-4.8); LYMPHOCYTES % (AUTO) 27.2 % (21-51); MEAN CORPUSCULAR HEMOGLOBIN 28.3 PG (27.0-31.0); MEAN PLATELET VOLUME 8.7 FL (7.4-10.4); MONOCYTES # (AUTO) 0.6 X10'3 (0-0.9); MONOCYTES % (AUTO) 9.5 % (2-12); NEUTROPHILS # (AUTO) 3.2 X10'3 (1.8-7.7); NEUTROPHILS % (AUTO) 55.2 % (42-75); PLATELET COUNT 340 X10'3 (140-440); RED BLOOD COUNT 3.12 X10'6 (4.20-5.60); RED CELL DISTRIBUTION WIDTH 20.4 % (11.5-14.5); WHITE BLOOD COUNT 5.9 X10'3 (4.5-11.0)
--- NOTE | 2019-01-12 06:21 | NUR ---
Problems reprioritized. Patient report given, questions answered & plan of care reviewed with ESTEFANIA Santillan.
[2019-01-12 06:54] LABS: ALBUMIN 2.9 G/DL (3.4-5.0); ANION GAP 13 (8-16); BLOOD UREA NITROGEN 10 MG/DL (7-18); BUN/CREATININE RATIO 14.1 (6.6-38.0); CALCIUM 9.2 MG/DL (8.5-10.1); CHLORIDE 104 MMOL/L (99-107); CREATININE 0.71 MG/DL (0.40-0.90); GLUCOSE 81 MG/DL (70-104); MAGNESIUM 1.4 MG/DL (1.5-2.4); POTASSIUM 3.8 MMOL/L (3.5-5.1); SODIUM 138 MMOL/L (135-145); TOTAL CARBON DIOXIDE 20.9 MMOL/L (24-32); eGFR 81 ML/MIN
[2019-01-12 07:00] VITALS: BP 164/93
[2019-01-12 07:09] LABS: PLATELET ESTIMATE NORMAL
[2019-01-12 07:10] LABS: ANISOCYTOSIS 3+; MICROCYTOSIS 1+
[2019-01-12] MEDS: K and/or MAG REPLACEMENT MC SCH (08:00)
[2019-01-12] MEDS: magnesium oxide 400mg tablet PO SCH (08:52)
[2019-01-12] MEDS: magnesium Cl slow-release 64mg tablet PO PRN (08:52)
[2019-01-12] MEDS: losartan 50mg tablet PO SCH (08:53)
[2019-01-12] MEDS: docusate sod 100mg capsule PO SCH (08:53)
[2019-01-12] MEDS: divalproex sodium 500mg tablet.DR PO SCH (08:53)
[2019-01-12] MEDS: diltiazem CD 120mg capsule (once-daily) PO SCH (08:54)
[2019-01-12] MEDS: potassium Cl 20 mEq SR tablet PO SCH (08:54)
[2019-01-12] MEDS: levoTHYROXINE 75mcg tablet PO SCH (08:54)
[2019-01-12] MEDS: HYDROchlorothiazide 12.5mg capsule PO SCH (08:54)
[2019-01-12] MEDS: lactobacillus rhamnosus 10,000 MMU CELLS/CAPSULE PO SCH (08:55)
[2019-01-12] MEDS: rivaroxaban 20mg tablet PO SCH (08:55)
[2019-01-12] MEDS: morphine 2 MG/ML inj. syringe IV PRN (08:56)
[2019-01-12] MEDS: pantoprazole 40mg Tablet.DR PO SCH (09:12)
[2019-01-12 11:00] VITALS: BP 155/97
--- NOTE | 2019-01-12 11:45 | NUR ---
Patient discharged. Patient walked to [facility] by staff.
[2019-01-12] MEDS ORDERED: TEMA15CA5 PO (12:22)
== END 2019-01-12 11:45 | DRG 682 ==
LOC: ER 10:21 → SUR 3N 16:20
PROVIDERS: ADMIT Internal Medicine; ATTEND Internal Medicine
DX: N17.9 Acute kidney failure, unspecified (principal); G93.41 Metabolic encephalopathy; Z68.44 Body mass index [BMI] 60.0-69.9, adult; E86.0 Dehydration; D72.829 Elevated white blood cell count, unspecified; E03.9 Hypothyroidism, unspecified; E78.00 Pure hypercholesterolemia, unspecified; E78.5 Hyperlipidemia, unspecified; M32.9 Systemic lupus erythematosus, unspecified; F22 Delusional disorders; F31.9 Bipolar disorder, unspecified; D64.9 Anemia, unspecified; I10 Essential (primary) hypertension; I48.0 Paroxysmal atrial fibrillation; M79.7 Fibromyalgia; Z79.01 Long term (current) use of anticoagulants; Z88.2 Allergy status to sulfonamides; Z88.6 Allergy status to analgesic agent; Z88.1 Allergy status to other antibiotic agents; Z88.7 Allergy status to serum and vaccine; Z79.899 Other long term (current) drug therapy; Z90.710 Acquired absence of both cervix and uterus; Z79.890 Hormone replacement therapy
CPT/HCPCS: 36415; 70450; 71045; 74176; 80048; 80053; 80305; 80320; 81001; 81003; 82140; 82948; 83605; 83735; 84145; 84443; 84484; 85025; 85610; 85730; 87040; 87081; 93005; 96365; 96368; 99285; G0378; J0696; J1644; J2060; J2270; J2543; J7030

== ENCOUNTER 2019-01-12 11:06 | Inpatient (IN) | payer MEDICARE ==
[~2019-01-12] VITALS: Ht 170.2 cm; Wt 64.5 kg
[~2019-01-12 11:06] MED LIST changes: +DIVA-76 PO; -POTA-82 PO; +QUET25TA PO
[2019-01-12] MEDS ORDERED: magnesium hydroxide 30ml (MOM) UD suspension PO PRN (11:45)
[2019-01-12] MEDS ORDERED: TEMA15CA5 PO (12:22)
[2019-01-12] MEDS ORDERED: ondansetron 4mg rapidly disintigrating tab PO PRN (12:50)
[2019-01-12] MEDS ORDERED: temazepam 15mg capsule PO PRN (12:50)
--- NOTE | 2019-01-12 13:14 | NUR ---
Admission note: Pt admitted to [facility] on a 5150 for GD. Pt transported via WC by [facility]. Pt arrives at 1215. Pt presents emotionally distraught, delusional, psychotic. Pt was high functioning, independent living with and had sudden onset of psychotic symptoms. Recent medication changes and medical procedures. Pt has history of bipolar, AFIB, fibromyalgia, Lupus, Raynauds, GERD, Ovarian Ca. Pts medical issues have been resolved but delusions and psychosis continue. Pt has delusions of of her and others being harmed. Pt lives with her and normally high functioning until recent sudden psychotic break. Last episode was 2004 in [facility]. Pt cooperative with admission process.
[2019-01-12] MEDS: HYDROcodone/acetaminophen 10/325mg tab PO SCH ×2 (13:42→20:16)
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
[2019-01-12] MEDS: magnesium oxide 400mg tablet PO SCH (16:06)
[2019-01-12 20:00] VITALS: BP 108/71
[2019-01-12] MEDS: gabapentin 400mg capsule PO SCH (20:16)
[2019-01-12] MEDS: risperiDONE 0.5mg tablet PO SCH (20:17)
[2019-01-12] MEDS: ascorbic acid 500mg tablet PO SCH (20:17)
[2019-01-12] MEDS: ferrous sulfate 325mg tablet PO SCH (20:17)
[2019-01-13] MEDS: LORazepam 1 MG tablet PO PRN ×2 (00:11→20:02)
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
[2019-01-13] MEDS: HYDROcodone/acetaminophen 10/325mg tab PO SCH ×4 (01:52→19:57)
[2019-01-13] MEDS: magnesium oxide 400mg tablet PO SCH (07:40)
[2019-01-13] MEDS: HYDROchlorothiazide 12.5mg capsule PO SCH (07:40)
[2019-01-13] MEDS: losartan 50mg tablet PO SCH (07:41)
[2019-01-13] MEDS: diltiazem CD 120mg capsule (once-daily) PO SCH (07:42)
[2019-01-13] MEDS: ferrous sulfate 325mg tablet PO SCH ×2 (07:42→19:56)
[2019-01-13] MEDS: vitamin E 400 unit capsule PO SCH (07:42)
[2019-01-13] MEDS: pantoprazole 40mg Tablet.DR PO SCH (07:42)
[2019-01-13] MEDS: multivitamins, therapeutics tablet PO SCH (07:42)
[2019-01-13] MEDS: calcium carbonate 500mg tablet PO SCH (07:42)
[2019-01-13] MEDS: rivaroxaban 20mg tablet PO SCH (07:43)
[2019-01-13] MEDS: atorvastatin 20mg tablet PO SCH (07:43)
[2019-01-13] MEDS: levoTHYROXINE 75mcg tablet PO SCH (07:43)
[2019-01-13] MEDS: cyanocobalamin 500mcg tablet PO SCH (07:43)
[2019-01-13] MEDS: cholecalciferol (vitamin D) 400 unit tablet PO SCH (07:43)
[2019-01-13] MEDS: dicyclomine 10 MG capsule PO SCH (07:43)
[2019-01-13] MEDS: divalproex sodium 500mg tablet.DR PO SCH (07:43)
[2019-01-13] MEDS: ascorbic acid 500mg tablet PO SCH ×2 (07:43→19:57)
[2019-01-13 08:00] VITALS: BP 147/68
[2019-01-13] MEDS ORDERED: non-formulary drug (Fish Oil/Borage/Flax/Om3,6,9#1 (Omega 3-6-9 1,200 mg Softgel) 1 CAP) PO SCH (08:00)
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
[2019-01-13] MEDS: gabapentin 400mg capsule PO SCH (19:57)
[2019-01-13] MEDS: risperiDONE 0.5mg tablet PO SCH (19:59)
[2019-01-13 20:00] VITALS: BP 125/62
[2019-01-14] MEDS: HYDROcodone/acetaminophen 10/325mg tab PO SCH ×4 (02:51→20:01)
--- NOTE | 2019-01-14 03:22 | NUR ---
Nursing Progress Note: Legal hold: 5150 Client on involuntary status for GD. Report received from NARINDER Gallo with use of SBAR. Why are they here: Pt admitted to [place] for Behavioral health on a 5150 for GD. Pt presents emotionally distraught, delusional, psychotic. Pt was high functioning, independent living with and had sudden onset of psychotic symptoms. Recent medication changes and medical procedures. Pt has history of bipolar, AFIB, fibromyalgia, Lupus, Raynauds, GERD, Ovarian Ca. Pts medical issues have been resolved but delusions and psychosis continue. Pt has delusions of her and others being harmed. Pt lives with her and is normally high functioning until recent sudden psychotic break. Last episode was 2004 in [facility]. Pt cooperative with admission process. Assessment What has happened this shift: Patient laying in her bed at the beginning of shift. She reported she wanted to get to sleep early this evening. Patient pleasant and cooperative. She denied all symptoms and explained she is here only because she had a several surgeries that lead to a psychotic break. Patient remained in her room throughout the shift. Abdominal and shoulder pain managed with scheduled [place]. S/I, H/I: denies A/VH: denies Sleep: asleep at this time ADL's: Independent Group attendance: no groups this shift Were meds taken: Yes Any med S/E: None reported, none observed Mental Status Exam Appearance: Elderly female dressed appropriately for the unit Eye contact: Direct Behavior: isolative Speech: Clear Mood: "good" Affect: congruent to mood Thought process: Linear Thought Content: getting good sleep Cognition: A/O Insight: poor Judgment: Poor Interventions PRN's used: Therapeutic interventions: 1:1 therapeutic assessment, medication administration/education/monitoring, provided clear/simple instructions, Q15 min safety checks. Restraints/seclusion/emergency medication: N/A Justification of Continued Inpatient Treatment: Pt is gravely disabled and needs therapeutic support and medication management to provide stabilization.
[2019-01-14 08:00] VITALS: BP 127/68
[2019-01-14] MEDS: divalproex sodium 500mg tablet.DR PO SCH (08:13)
[2019-01-14] MEDS: multivitamins, therapeutics tablet PO SCH (08:13)
[2019-01-14] MEDS: rivaroxaban 20mg tablet PO SCH (08:14)
[2019-01-14] MEDS: pantoprazole 40mg Tablet.DR PO SCH (08:14)
[2019-01-14] MEDS: losartan 50mg tablet PO SCH (08:14)
[2019-01-14] MEDS: HYDROchlorothiazide 12.5mg capsule PO SCH (08:14)
[2019-01-14] MEDS: levoTHYROXINE 75mcg tablet PO SCH (08:15)
[2019-01-14] MEDS: calcium carbonate 500mg tablet PO SCH (08:15)
[2019-01-14] MEDS: cyanocobalamin 500mcg tablet PO SCH (08:15)
[2019-01-14] MEDS: ascorbic acid 500mg tablet PO SCH ×2 (08:15→20:01)
[2019-01-14] MEDS: vitamin E 400 unit capsule PO SCH (08:16)
[2019-01-14] MEDS: cholecalciferol (vitamin D) 400 unit tablet PO SCH (08:16)
[2019-01-14] MEDS: ferrous sulfate 325mg tablet PO SCH ×2 (08:17→20:01)
[2019-01-14] MEDS: atorvastatin 20mg tablet PO SCH (08:17)
[2019-01-14] MEDS: magnesium oxide 400mg tablet PO SCH (08:17)
[2019-01-14] MEDS: diltiazem CD 120mg capsule (once-daily) PO SCH (08:17)
[2019-01-14] MEDS: dicyclomine 10 MG capsule PO SCH (08:17)
[2019-01-14] MEDS: acetaminophen 325mg tablet PO PRN (16:01)
[2019-01-14] MEDS: LORazepam 1 MG tablet PO PRN ×2 (16:02→22:27)
--- NOTE | 2019-01-14 16:33 | NUR ---
Nursing Progress Note: Legal hold: 5150 Client on involuntary status for GD. Report received from NARINDER Raman with use of SBAR. Why are they here: Pt admitted to [place] for Behavioral health on a 5150 for GD. Pt presents emotionally distraught, delusional, psychotic. Pt was high functioning, independent living with and had sudden onset of psychotic symptoms. Recent medication changes and medical procedures. Pt has history of bipolar, AFIB, fibromyalgia, Lupus, Raynauds, GERD, Ovarian Ca. Pts medical issues have been resolved but delusions and psychosis continue. Pt has delusions of her and others being harmed. Pt lives with her and is normally high functioning until recent sudden psychotic break. Last episode was 2004 in [facility]. Pt cooperative with admission process. Assessment What has happened this shift: The patient was asleep at change of shift. she was up to breakfast and attended groups with her peers. she is polite and cooperative, alert. States, "all these problems that brought me here have to do with my bipolar, I took on too much family stress." At times believes she must solve everyone's problems on the unit and had to be told several times to let the staff deal with other patients problems., just focus on herself. Denies suicidal thoughts and is planning on going home to her who has "done nothing wrong at all and is a wonderful man." c/o generalized abdominal pain and some mild anxiety. S/I, H/I: denies A/VH: denies Sleep: napped ADL's: Independent Group attendance: yes Were meds taken: Yes Any med S/E: None reported, none observed Mental Status Exam Appearance: Neat and clean Eye contact: Direct Behavior: calm Speech: Clear Mood: "good" Affect: congruent to mood Thought process: Linear Thought Content: focused on other 's problems Cognition: A/O Insight: poor Judgment: Poor Interventions PRN's used: Tylenol, Ativan Therapeutic interventions: 1:1 therapeutic assessment, medication administration/education/monitoring, provided clear/simple instructions, Q15 min safety checks. Restraints/seclusion/emergency medication: N/A Justification of Continued Inpatient Treatment: Pt is gravely disabled and needs therapeutic support and medication management to provide stabilization.
[2019-01-14 19:49] VITALS: BP 97/63
[2019-01-14] MEDS: risperiDONE 0.5mg tablet PO SCH (20:00)
[2019-01-14] MEDS: gabapentin 400mg capsule PO SCH (20:01)
[2019-01-14] MEDS: mag hydrox/Alum hydrox/simeth 30ml oral suspension PO PRN (20:38)
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
[2019-01-15] MEDS: HYDROcodone/acetaminophen 10/325mg tab PO SCH ×4 (01:48→20:07)
[2019-01-15 08:00] VITALS: BP 134/77
[2019-01-15] MEDS: ferrous sulfate 325mg tablet PO SCH ×2 (09:01→19:59)
[2019-01-15] MEDS: multivitamins, therapeutics tablet PO SCH (09:01)
[2019-01-15] MEDS: LORazepam 1 MG tablet PO PRN (09:01)
[2019-01-15] MEDS: cyanocobalamin 500mcg tablet PO SCH (09:01)
[2019-01-15] MEDS: ascorbic acid 500mg tablet PO SCH ×2 (09:01→19:41)
[2019-01-15] MEDS: pantoprazole 40mg Tablet.DR PO SCH (09:01)
[2019-01-15] MEDS: atorvastatin 20mg tablet PO SCH (09:02)
[2019-01-15] MEDS: losartan 50mg tablet PO SCH (09:02)
[2019-01-15] MEDS: HYDROchlorothiazide 12.5mg capsule PO SCH (09:03)
[2019-01-15] MEDS: calcium carbonate 500mg tablet PO SCH (09:03)
[2019-01-15] MEDS: magnesium oxide 400mg tablet PO SCH (09:03)
[2019-01-15] MEDS: levoTHYROXINE 75mcg tablet PO SCH (09:03)
[2019-01-15] MEDS: rivaroxaban 20mg tablet PO SCH (09:03)
[2019-01-15] MEDS: dicyclomine 10 MG capsule PO SCH (09:04)
[2019-01-15] MEDS: vitamin E 400 unit capsule PO SCH (09:04)
[2019-01-15] MEDS: diltiazem CD 120mg capsule (once-daily) PO SCH (09:04)
[2019-01-15] MEDS: cholecalciferol (vitamin D) 400 unit tablet PO SCH (09:04)
[2019-01-15] MEDS: divalproex sodium 500mg tablet.DR PO SCH (09:04)
[2019-01-15] MEDS: acetaminophen 325mg tablet PO PRN (16:28)
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
[2019-01-15 19:00] VITALS: BP 156/69
[2019-01-15] MEDS: gabapentin 400mg capsule PO SCH (19:41)
[2019-01-15] MEDS: risperiDONE 0.5mg tablet PO SCH (19:59)
[2019-01-15] MEDS ORDERED: mirtazapine 15mg tablet PO SCH (21:00)
[2019-01-16] MEDS: HYDROcodone/acetaminophen 10/325mg tab PO SCH ×4 (02:00→19:41)
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
[2019-01-16] MEDS: acetaminophen 325mg tablet PO PRN ×2 (06:22→09:58)
[2019-01-16] MEDS: levoTHYROXINE 75mcg tablet PO SCH (07:35)
[2019-01-16] MEDS: multivitamins, therapeutics tablet PO SCH (07:35)
[2019-01-16] MEDS: ferrous sulfate 325mg tablet PO SCH ×2 (07:35→19:41)
[2019-01-16] MEDS: rivaroxaban 20mg tablet PO SCH (07:36)
[2019-01-16] MEDS: vitamin E 400 unit capsule PO SCH (07:36)
[2019-01-16] MEDS: pantoprazole 40mg Tablet.DR PO SCH (07:36)
[2019-01-16] MEDS: ascorbic acid 500mg tablet PO SCH ×2 (07:36→19:41)
[2019-01-16] MEDS: HYDROchlorothiazide 12.5mg capsule PO SCH (07:36)
[2019-01-16] MEDS: cholecalciferol (vitamin D) 400 unit tablet PO SCH (07:37)
[2019-01-16] MEDS: divalproex sodium 500mg tablet.DR PO SCH (07:37)
[2019-01-16] MEDS: cyanocobalamin 500mcg tablet PO SCH (07:37)
[2019-01-16] MEDS: atorvastatin 20mg tablet PO SCH (07:37)
[2019-01-16] MEDS: magnesium oxide 400mg tablet PO SCH (07:37)
[2019-01-16] MEDS: calcium carbonate 500mg tablet PO SCH (07:37)
[2019-01-16] MEDS: dicyclomine 10 MG capsule PO SCH (07:38)
[2019-01-16] MEDS: losartan 50mg tablet PO SCH (07:38)
[2019-01-16] MEDS: diltiazem CD 120mg capsule (once-daily) PO SCH (07:38)
[2019-01-16 08:00] VITALS: BP 130/71
[2019-01-16] MEDS: mag hydrox/Alum hydrox/simeth 30ml oral suspension PO PRN (14:24)
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
[2019-01-16] MEDS: risperiDONE 0.5mg tablet PO SCH (19:41)
[2019-01-16] MEDS: gabapentin 400mg capsule PO SCH (19:41)
[2019-01-16 19:45] LABS: BASOPHILS % (AUTO) 0.5 % (0-1); EOSINOPHILS # (AUTO) 0.4 X10'3 (0-0.9); EOSINOPHILS % (AUTO) 5.5 % (0-6); HEMATOCRIT 32.4 % (35.0-45.0); HEMOGLOBIN 10.9 g/dl (12.0-16.0); LYMPHOCYTES # (AUTO) 1.7 X10'3 (1.1-4.8); LYMPHOCYTES % (AUTO) 22.8 % (21-51); MEAN CORPUSCULAR HEMOGLOBIN 29.4 PG (27.0-31.0); MEAN CORPUSCULAR HGB CONC 33.5 g/dL (33.0-36.5); MEAN CORPUSCULAR VOLUME 87.7 FL (78-98); MEAN PLATELET VOLUME 8.3 FL (7.4-10.4); MONOCYTES # (AUTO) 0.9 X10'3 (0-0.9); MONOCYTES % (AUTO) 11.5 % (2-12); NEUTROPHILS # (AUTO) 4.6 X10'3 (1.8-7.7); NEUTROPHILS % (AUTO) 59.7 % (42-75); PLATELET COUNT 388 X10'3 (140-440); RED CELL DISTRIBUTION WIDTH 19.9 % (11.5-14.5); WHITE BLOOD COUNT 7.6 X10'3 (4.5-11.0)
[2019-01-16 19:45] LABS: OCCULT BLOOD STOOL NEGATIVE (Neg)
[2019-01-16 19:55] LABS: ALBUMIN 3.4 G/DL (3.4-5.0); ANION GAP 11 (8-16); BLOOD UREA NITROGEN 26 MG/DL (7-18); BUN/CREATININE RATIO 27.1 (6.6-38.0); CHLORIDE 97 MMOL/L (99-107); CREATININE 0.96 MG/DL (0.40-0.90); GLUCOSE 93 MG/DL (70-104); POTASSIUM 4.2 MMOL/L (3.5-5.1); SODIUM 132 MMOL/L (135-145); TOTAL CARBON DIOXIDE 23.7 MMOL/L (24-32); eGFR 57 ML/MIN
[2019-01-16 20:00] VITALS: BP 121/69
[2019-01-16 20:43] LABS: ANISOCYTOSIS 2+; PLATELET ESTIMATE NORMAL
[2019-01-16] MEDS: mirtazapine 15mg tablet PO SCH (21:09)
[2019-01-16] MEDS: LORazepam 1 MG tablet PO PRN (23:26)
[2019-01-17] MEDS: HYDROcodone/acetaminophen 10/325mg tab PO SCH ×5 (02:00→19:52)
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
[2019-01-17 07:58] VITALS: BP 136/82
[2019-01-17] MEDS: levoTHYROXINE 75mcg tablet PO SCH (08:00)
[2019-01-17] MEDS: cholecalciferol (vitamin D) 400 unit tablet PO SCH (08:00)
[2019-01-17] MEDS: pantoprazole 40mg Tablet.DR PO SCH (08:00)
[2019-01-17] MEDS: diltiazem CD 120mg capsule (once-daily) PO SCH (08:01)
[2019-01-17] MEDS: rivaroxaban 20mg tablet PO SCH (08:02)
[2019-01-17] MEDS: calcium carbonate 500mg tablet PO SCH (08:02)
[2019-01-17] MEDS: losartan 50mg tablet PO SCH (08:02)
[2019-01-17] MEDS: divalproex sodium 500mg tablet.DR PO SCH (08:02)
[2019-01-17] MEDS: atorvastatin 20mg tablet PO SCH (08:03)
[2019-01-17] MEDS: ascorbic acid 500mg tablet PO SCH ×2 (08:03→19:52)
[2019-01-17] MEDS: vitamin E 400 unit capsule PO SCH (08:03)
[2019-01-17] MEDS: HYDROchlorothiazide 12.5mg capsule PO SCH (08:03)
[2019-01-17] MEDS: magnesium oxide 400mg tablet PO SCH (08:03)
[2019-01-17] MEDS: multivitamins, therapeutics tablet PO SCH (08:03)
[2019-01-17] MEDS: ferrous sulfate 325mg tablet PO SCH ×2 (08:03→19:52)
[2019-01-17] MEDS: dicyclomine 10 MG capsule PO SCH (08:04)
[2019-01-17] MEDS: cyanocobalamin 500mcg tablet PO SCH (08:17)
--- NOTE | 2019-01-17 09:39 | NUR ---
Initial: Pt admit w/ psychosis PO 100% heart healthy meals meeting needs. LBM 01/17. No nutrition concerns at this time. Will continue to monitor. Rec: 1. advance to regular diet per MD 2. routine bowel care Addendum: 01/17/19 at [address] Amended: Links added.
[2019-01-17] MEDS: mag hydrox/Alum hydrox/simeth 30ml oral suspension PO PRN (14:22)
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
[2019-01-17 19:00] VITALS: BP 123/63
[2019-01-17] MEDS: mirtazapine 15mg tablet PO SCH (20:24)
[2019-01-17] MEDS: gabapentin 400mg capsule PO SCH (20:24)
[2019-01-17] MEDS: risperiDONE 0.5mg tablet PO SCH (20:25)
--- NOTE | 2019-01-17 21:38 | NUR ---
Nursing Progress Note Legal hold: 5150 Client on involuntary status for GD. Report received from Susan MAC with use of SBAR. Why are they here: Pt admitted to [facility] on a 5150 for GD. Pt presents emotionally distraught, delusional, psychotic. Pt was high functioning, independent living with and had sudden onset of psychotic symptoms. Recent medication changes and medical procedures. Pt has history of bipolar, AFIB, fibromyalgia, Lupus, Raynauds, GERD, Ovarian Ca. Pts medical issues have been resolved but delusions and psychosis continue. Pt has delusions of her and others being harmed. Pt lives with her and is normally high functioning until recent sudden psychotic break. Last episode was 2004 in [facility]. Pt cooperative with admission process. Assessment What has happened this shift: Pt c/o abdominal pain after phone conversation with bad news. Pt asked for her [place] which was due and given. Watching movie with peers and laughing and talking with her group of peers. Patient is very pleasant in all interactions. Pt. sits at "[employer] table" everyday and has made some friendships with peers. S/I, H/I: denies A/VH: denies Sleep: napped ADL's: Independent Group attendance: yes Were meds taken: Yes Any med S/E: None reported, none observed Mental Status Exam Appearance: Neat and clean Eye contact: Direct Behavior: calm cooperative. Speech: Clear, soft. Mood: Euthymic Affect: Bright except when in pain. Thought process: Linear Thought Content: Abdominal pain. Cognition: A/O Insight: poor Judgment: Poor Interventions PRN's used: [place] Therapeutic interventions: 1:1 therapeutic assessment, medication administration/education/monitoring, provided clear/simple instructions, Q15 min safety checks. Restraints/seclusion/emergency medication: N/A Justification of Continued Inpatient Treatment: Pt is gravely disabled and needs therapeutic support and medication management to provide stabilization.
[2019-01-18] MEDS: LORazepam 1 MG tablet PO PRN (00:55)
[2019-01-18] MEDS: HYDROcodone/acetaminophen 10/325mg tab PO SCH ×3 (03:16→13:20)
[2019-01-18] MEDS: acetaminophen 325mg tablet PO PRN (04:48)
[2019-01-18] MEDS: loperamide 2mg capsule PO PRN ×2 (04:48→11:10)
[2019-01-18 07:36] VITALS: BP 109/64
[2019-01-18] MEDS: rivaroxaban 20mg tablet PO SCH (08:16)
[2019-01-18] MEDS: multivitamins, therapeutics tablet PO SCH (08:16)
[2019-01-18] MEDS: ascorbic acid 500mg tablet PO SCH (08:16)
[2019-01-18] MEDS: atorvastatin 20mg tablet PO SCH (08:16)
[2019-01-18] MEDS: vitamin E 400 unit capsule PO SCH (08:16)
[2019-01-18] MEDS: cyanocobalamin 500mcg tablet PO SCH (08:16)
[2019-01-18] MEDS: cholecalciferol (vitamin D) 400 unit tablet PO SCH (08:16)
[2019-01-18] MEDS: magnesium oxide 400mg tablet PO SCH (08:16)
[2019-01-18] MEDS: levoTHYROXINE 75mcg tablet PO SCH (08:16)
[2019-01-18] MEDS: calcium carbonate 500mg tablet PO SCH (08:16)
[2019-01-18] MEDS: diltiazem CD 120mg capsule (once-daily) PO SCH (08:17)
[2019-01-18] MEDS: HYDROchlorothiazide 12.5mg capsule PO SCH (08:17)
[2019-01-18] MEDS: ferrous sulfate 325mg tablet PO SCH (08:17)
[2019-01-18] MEDS: pantoprazole 40mg Tablet.DR PO SCH (08:17)
[2019-01-18] MEDS: divalproex sodium 500mg tablet.DR PO SCH (08:17)
[2019-01-18] MEDS: dicyclomine 10 MG capsule PO SCH (08:17)
[2019-01-18] MEDS: losartan 50mg tablet PO SCH (08:17)
[2019-01-18] MEDS ORDERED: HYDR12.5 PO (10:56)
[2019-01-18] MEDS ORDERED: RISP0.5T3 PO (10:56)
[2019-01-18] MEDS ORDERED: DIVA-76 PO (10:56)
--- NOTE | 2019-01-18 11:29 | NUR ---
Nursing Progress Note Legal hold:N/A Client is voluntary Report received from Zoe Saeed RN with use of SBAR. Why are they here: Pt admitted to [place] for [facility] on a 5150 for GD. Pt presents emotionally distraught, delusional, psychotic. Pt was high functioning, independent living with and had sudden onset of psychotic symptoms. Recent medication changes and medical procedures. Pt has history of bipolar, AFIB, fibromyalgia, Lupus, Raynauds, GERD, Ovarian Ca. Pts medical issues have been resolved but delusions and psychosis continue. Pt has delusions of her and others being harmed. Pt lives with her and is normally high functioning until recent sudden psychotic break. Last episode was [address] [facility]. Pt cooperative with admission process. Assessment What has happened this shift: Pt denies depression, SI/HI/AH/VH. Pt reported feeling angry and hurt over roommate. Pt talked about how last night she and her roommate were getting along, "I even got her to come out for groups but this morning she hates me." Pt expressed understanding that her roommate is going through some things but it didn't make it okay for her to be mean to others. Pt c/o diarrhea this morning stated "but I think it's my fault because I ate a burrito last night, I love burritos, they're so good." PRN imodium administered at 1110. Pt c/o 9/10 general pain before scheduled [place]. Pt states that the doctor is discharging her today, indicates that she is ready to go home. S/I, H/I: Pt denies A/VH: Pt denies Sleep: slept 5 hours per noc shift report ADL's: Independent Group attendance: yes Were meds taken: Yes Any med S/E: None reported or observed Mental Status Exam Appearance: Neat and clean Eye contact: Good Behavior: Pleasant, cooperative Speech: Clear, soft. Mood: angry and hurt over roommate Affect: Bright, anxious Thought process: Linear Thought Content: hurt that roommate has been mean to her this morning, ready to go home with her Cognition: A/O Insight: Fair to good Judgment: Fair to good Interventions PRN's used: imodium Therapeutic interventions: 1:1 assessment, active listening, therapeutic conversation, positive reinforcement, medication administration/education/monitoring, Q15 min safety checks. Restraints/seclusion/emergency medication: N/A Justification of Continued Inpatient Treatment: Pt has improved, she is back to baseline and plan is for her to discharge home today.
--- NOTE | 2019-01-18 15:55 | NUR ---
DISCHARGE NOTE: Pt discharged home with at 1520. Wheeled in wheelchair off the unit and down to lobby by PCT. Discharge instructions, Rx's, and follow up care reviewed with pt and who expressed understanding. Paper Rx's provided for new medications. All belongings pt arrived to mental health unit with returned to patient. Pt and did state that pt had a new pair of prescription eyeglasses while on the surgical unit. states that they were on her bedside table in the evening and gone when he returned in the morning. Surgical unit does not have the glasses, lost and found also does not have the glasses. 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
== END 2019-01-18 15:40 | disposition home or self-care (01) | DRG 885 ==
LOC: ADULT MH 11:06
PROVIDERS: ADMIT Psychiatry & Neurology Psychiatry; ATTEND Internal Medicine
DX: F29 Unspecified psychosis not due to a substance or known physiological condition (principal); E78.5 Hyperlipidemia, unspecified; E03.9 Hypothyroidism, unspecified; I10 Essential (primary) hypertension; I48.91 Unspecified atrial fibrillation; I73.00 Raynaud's syndrome without gangrene; M79.7 Fibromyalgia; Z79.01 Long term (current) use of anticoagulants; Z79.899 Other long term (current) drug therapy; Z88.2 Allergy status to sulfonamides; Z88.8 Allergy status to other drugs, medicaments and biological substances
CPT/HCPCS: 36415; 80048; 82272; 85025; 87081; 99285; J3420